=== PATIENT | female | born 1985 | race Caucasian/White ===

== ENCOUNTER 2023-04-26 21:59 | Outpatient (REF) | payer OTHER, SELFPAY ==
[2023-05-02 09:08] LABS: Age Gdln ACOG Testing Note (.); HPV Aptima Negative (Negative); IGP, Aptima HPV, rfx 16/18,45 Note (.)
== END 2023-04-26 22:00 | disposition home or self-care (01) ==
LOC: LAB 21:59
PROVIDERS: PCP Family Medicine; Visit Provider Obstetrics & Gynecology
DX: Z01.419 Encounter for gynecological examination (general) (routine) without abnormal findings (principal)
CPT/HCPCS: 87624; G0145

== ENCOUNTER 2024-05-22 18:56 | Outpatient (REF) | payer OTHER, SELFPAY | END 2024-05-22 18:57 | disposition home or self-care (01) | LOC: LAB 18:56 | PROVIDERS: PCP Family Medicine; Visit Provider Obstetrics & Gynecology | DX: Z01.419 Encounter for gynecological examination (general) (routine) without abnormal findings (principal) | CPT/HCPCS: 87624; 88175 ==

== ENCOUNTER 2024-07-24 13:13 | Outpatient (OUT) | payer OTHER, SELFPAY ==
--- NOTE | 2024-07-24 13:15 | MM_ITS ---
Patient Name: GENNY FLORENTINO MR#: [id number] : 1985 Exam Date: 07/24/2024 Ordering Doctor: DR Oliver Noyola . RADIOLOGY REPORT PROCEDURE: MM TOMOSYNTHESIS SCREENING BI COMPARISON: MG MAMM DX 3D RT CAD, 08/17/2022. MG MAMM SCREEN 3D YOANNA CAD, 04/27/2022. INDICATIONS: Screening Calculator Name NCI Breast Cancer Risk Assessment Tool 5 Year Breast Cancer Risk 0.60% Lifetime Breast Cancer Risk 11.10% Personal Breast Cancer No Personal Ovarian Cancer No Treatments None Family Cancers None LOCATION: [facility] BREAST COMPOSITION: The breasts are extremely dense, which lowers the sensitivity of mammography. FINDINGS: DIAGNOSTIC CATEGORY 2--BENIGN FINDING. NO CHANGE FROM COMPARISON. Scattered benign-appearing nodules are present. Scattered benign-appearing calcifications are present. Scattered benign-appearing lymph nodes are present. RIGHT BREAST: No significant suspicious finding. LEFT BREAST: No significant suspicious finding. RECOMMENDATIONS: ROUTINE MAMMOGRAM AND CLINICAL EVALUATION IN 12 MONTHS. PLEASE NOTE: A NORMAL MAMMOGRAM DOES NOT EXCLUDE THE POSSIBILITY OF BREAST CANCER. A CLINICALLY SUSPICIOUS PALPABLE LUMP SHOULD BE BIOPSIED. Dictated by: Joe Lynn MD on 07/24/2024 at 15:35 Approved by: Joe Lynn MD on 07/24/2024 at 15:36
--- OUTSIDE RECORDS SUMMARY | 2024-07-24 13:35 | XMS_ITS | CCD ---
Author Organization [facility] Care Team Providers Care Architect In Training Name Role Phone SABINO SILVA Primary Care Physician [phone] MOJGAN, DR SABINO Harmon Primary Care Unavailable DENNYS ., DR HERNÁNDEZ Consulting Unavailable DENNYS ., DR HERNÁNDEZ Admitting Unavailable DENNYS ., DR HERNÁNDEZ Attending Unavailable ZIEBER, DR MATTHEW Sapp Consulting Unavailable TIMMONS ., DR GONZALEZ Attending Unavailable TIMMONS ., DR GONZALEZ Consulting Unavailable TIMMONS ., DR GONZALEZ Admitting Unavailable FURLONG, DR SABINO Harmon Primary Care Unavailable ORLANDO LAI Consulting Unavailable TIMMONS ., DR GONZALEZ Attending Unavailable TIMMONS ., DR GONZALEZ Consulting Unavailable FURLONG, DR SABINO Harmon Primary Care Unavailable TIMMONS ., DR GONZALEZ Admitting Unavailable TANVI ODONNELL Consulting Unavailable MICHAEL AIKEN Consulting Unavailable FURLONG, DR SABINO Harmon Primary Care Unavailable DENNYS ., DR HERNÁNDEZ Consulting Unavailable DENNYS ., DR HERNÁNDEZ Admitting Unavailable DENNYS ., DR HERNÁNDEZ Attending Unavailable DENNYS ., DR HERNÁNDEZ Attending Unavailable KEMAH, DR IRMA Koch Consulting Unavailable FURLONG, DR SABINO Harmon Primary Care Unavailable DENNYS ., DR HERNÁNDEZ Admitting Unavailable DENNYS ., DR HERNÁNDEZ Consulting Unavailable Krishan TIMMONS Attending Unavailable TIMMONS, Krishan Sapp Attending Unavailable TIMMONS, Krishan Sapp Attending Unavailable TIMMONS, Krishan Sapp Attending Unavailable TIMMONS, Krishan R Attending Unavailable TIMMONS, Krishan R Attending Unavailable TIMMONS, Krishan Sapp Attending Unavailable TIMMONS, Krishan Sapp Attending Unavailable Furlong Sabino STALLWORTH Primary Care Provider SABINO SILVA Attending Unavailable SABINO SILVA Referring Unavailable FURLOMAZIN, SABINO Harmon Primary Care Unavailable MOJGAN, SABINO Harmon Referring Unavailable FURLOSABINO RETANA Primary Care Unavailable DENNYS, EDGAR Attending Unavailable Sabino Silva MD Primary Care Provider [phone] Allergies Allergy Classification Reported Allergen(s) Allergy Type Date of Onset Reaction(s) Facility (7 sources) Cat Dander; Translations: [CAT DANDER] Propensity to adverse reactions to drug 2 [employer] Work Phone: (3 sources) Cat Hair Extract Propensity to adverse reactions 2 [facility] Medications Current Medications Medication Drug Class(es) Dates Sig (Normalized) Sig (Original) busPIRone hydrochloride 5 mg oral tablet (3 sources) busPIRone (Buspa r) 5 MG tablet busPIRone HCl Active clobetasol propionate 0.5 mg/ml topical cream (3 sources) Corticosteroid clobetasol (Temovate) 0.05 % cream 1 application every 12 (twelve) hours Active levothyroxine sodium 0.088 mg oral tablet (13 sources) l-Thyroxine Start: 01-03-2023 End: 09-07-2023 take 1 tablet by mouth once daily levothyroxine (SYNTHROID, LEVOTHROID) 88 MCG tablet Indications: Hypothyroidism, unspecified TAKE 1 TABLET BY MOUTH EVERY DAY 90 tablet 3 09/07/2023 Active Start: 07-17-2020 take 1 tablet by palmira once daily levothyroxine 75 mcg (0.075 mg) Tab mcg tab(s), Oral, Daily, Refills(s) 0 Start Date: 07/17/20 Status: Ordered valACYclovir 1000 mg oral tablet (10 sources) Herpesvirus Nucleoside Analog DNA Polymerase Inhibitor, Herpes Simplex Virus Nucleoside Analog DNA Polymerase Inhibitor, Herpes Zoster Virus Nucleoside Analog DNA Polymerase Inhibitor Start: 07-12-2024 valACYclovir (VALTR EX) 1000 mg tablet 2 tablets BID x 1 day 4 tablet 4 07/12/2024 Active Start: 07-10-2022 End: 07-12-2024 take 2 tablets by mouth every twelve hours valACYclovir (VALTREX) 1000 mg tablet TAKE 2 TABLETS BY MOUTH EVERY 12 HOURS FOR 1 DAY 4 tablet 4 07/17/2023 07/12/2024 Discontinued (Reorder) take 2 tablets by mo [facility] every twelve hours valACYclovir (Valtrex) 1 g tablet TAKE 2 TABLETS BY MOUTH EVERY 12 HOURS FOR 1 DAY Active Completed/Discontinued Medications Medication Drug Class(es) Dates Sig (Normalized) Sig (Original) ciprofloxacin 500 mg oral tablet (1 source) Quinolone Antimicrobial Start: 07-18-2022 take 1 tablet by mouth once daily Cipro 500 mg Tab 500 mg = 1 tab(s), Oral, Daily, Take 1 tablet the day before the procedure and 1 tablet after the procedure, # 2 tab(s), Refills(s) 0, Pharmacy: [facility]/pharmacy #[id number], 162, cm, 07/18/22 13:55:00 EST, Height/Length Dosing, 66, kg, 07/18/22 13:55:00 EST, W... Start Date: 07/18/22 Status: Ordered Problems Active Problems Problem Classification Problem Date Documented Date Episodic/Chronic Genitourinary symptoms and ill-defined conditions (14 sources) Stress incontinence (female) (male); Translations: [Genuine stress incontinence] Onset: 09-11-2022 Chronic Immunizations and screening for infectious disease (4 sources) Encounter for screening for human papillomavirus (HPV); Translations: [Requires diphtheria, tetanus and pertussis vaccination] Onset: 04-21-2022 08-23-2023 Episodic Nonmalignant breast conditions (4 sources) Solitary cyst of right breast; Translations: [SOLITARY CYST OF RIGHT BREAST] Onset: 08-17-2022 Episodic Other nutritional; endocrine; and metabolic disorders (1 source) Overweight; Translations: [Overweight] 08-23-2023 Episodic Other nutritional; endocrine; and metabolic disorders (1 source) Overweight; Translations: [Overweight] Onset: 08-23-2023 Episodic Other screening for suspected conditions (not mental disorders or infectious disease) (10 sources) Encounter for screening mammogram for malignant neoplasm of breast; Translations: [Encounter for screening for malignant neoplasm of cervix] Onset: 04-20-2022 Episodic Thyroid disorders (14 sources) Hypothyroidism; Translations: [Hypothyroidism, unspecified] Onset: 03-28-2016 07-17-2020 Chronic Unclassified (1 source) Annual Exam Onset: 08-23-2023 Past or Other Problems Problem Classification Problem Date Documented Da te Episodic/Chronic Mood disorders (3 sources) Mood disorders Onset: 08-23-2023 08-23-2023 Other female genital disorders (6 sources) Fallopian tube disorder; Translations: [Noninflammatory disorder of ovary, fallopian tube and broad ligament, unspecified] Onset: 08-23-2023 07-17-2020 Episodic Results Test Name Value Interpretation Reference Range Facility IGP,APTIMA HPV,AGE GDLNon AGE GDLN ACOG TESTING Note . [facility] Comment on above: TESTS RESULT FLAG UN ITS REF RANGE LAB Clinician Provided Cytology Information Source.............Cervix;Endocervix No. of containers..01 ThinPrep Vial Age Algo ACOG Elba... FLAG LEGEND: L-Low Normal,H-High Normal,LL-Alert Low,HH-Alert High <-Panic Low,>-Panic High,A-Abnormal,AA-Critical Abnormal Performed at: 01 = [address] [place] [address] Georgia Franklin MD, HPV APTIMA Negative Negative [facility] e Comment on above: This nucleic acid am plification test detects fourteen high- risk HPV types (16,18,31,33,35,39,45,51,52,56,58,59,66,68) without differentiation. Performed at: =[facility] [address] [id number] Implant Coordinator: Georgia Franklin MD, Phone: [phone] Performed at: [place] [address] [facility] [place] [id number] Implant Coordinator: Georgia Franklin MD, Phone: [phone] IGP, HARMAN HPV, RFX 16/18,45 Note . [facility] Comment on above: TESTS RESULT FLAG UN ITS REF RANGE LAB DIAGNOSIS: 02 NEGATIVE FOR INTRAEPITHELIAL LESION OR MALIGNANCY. THIS SPECIMEN WAS RESCREENED PART OF OUR CORPORATE SAFETY DIRECTOR PROGRAM. Specimen adequacy: 02 Satisfactory for evaluation. Endocervical and/or squamous metaplastic cells (endocervical component) are present. Performed by: Naresh Ceballos, Parts Room Associate (ASC) QC reviewed by: Naresh Whatley, Parts Room Associate (ASC) . 02 Note: Note 02 The Pap smear is a screening test designed to aid in the detection of premalignant and malignant conditions of the uterine cervix. It is not a diagnostic procedure and should not be used as the sole means of detecting cervical cancer. Both false-positive and false-negative reports do occur. Test Methodology: Note 02 This liquid based ThinPrep(R) pap test was screened with the use of an image guided system. HPV Genotype Reflex Note 02 Criteria not met, HPV Genotype not performed. FLAG LEGEND: L-Low Normal,H-High Normal,LL-Alert Low,HH-Alert High <-Panic Low,>-Panic High,A-Abnormal,AA-Critical Abnormal Performed at: 02 [facility] [place] [address] [facility] [place] [address] Georgia Franklin MD, BRUSH-SPATULA CERVIX ENDOCERVIX [facility] COMPREHENSIVE METABOLIC PANE Adriano 08-23-2023 Albumin [Mass/Vol] 4.3 g/dL Normal 3.2-5.3 [facility] Comment on above: Performed By: #### C PRINCE, 61032-5, THYR #### [facility] ([id number]) [address], [address] [place] [address] ALP [Catalytic activity/Vol] 48 U/L Normal 39-130 [facility] Comment on above: Performed By: #### Supriya MORRISON, 53140-2, THYR #### [facility] ([id number]) [address], [address] [place] [address] ALT [Catalytic activity/Vol] 12 U/L Normal 0-31 [facility] Comment on above: Performed By: #### Supriya MORRISON, 65238-7, THYR #### [facility] ([id number]) [address], [address] [place] [address] Anion gap [Moles/Vol] 8 mmol/L Normal 5-15 [facility] Comment on above: Performed By: #### Supriya MORRISON, 40508-7, THYR #### [facility] ([id number]) [address], [address] [place] [address] AST [Catalytic activity/Vol] 14 U/L Normal 0-41 [facility] Comment on above: Performed By: #### Supriya MORRISON, 14134-3, THYR #### [facility] ([id number]) [address], [address] [place] [address] Bilirubin [Mass/Vol] 0.5 mg/dL Normal 0.3-1.2 [facility] Comment on above: Performed By: #### Supriya MORRISON, 21294-5, THYR #### [facility] ([id number]) [address], [address] [place] [address] Calcium [Mass/Vol] 9.1 mg/dL Normal 8.5-10.5 [facility] Comment on above: Performed By: #### C PRINCE, 53412-1, THYR #### [facility] ([id number]) [address], [address] [place] [address] Chloride [Moles/Vol] 104 mmol/L Normal 98-109 [facility] Comment on above: Performed By: #### C PRINCE, 74376-0, THYR #### [facility] ([id number]) [address], [address] [place] [address] CO2 [Moles/Vol] 25 mmol/L Normal 22-32 [facility] Comment on above: Performed By: #### Supriya MORRISON, 32720-3, THYR #### [facility] ([id number]) [address], [address] [place] [address] Creatinine [Mass/Vol] 0.95 mg/dL Normal 0.40-1.00 [facility] Comment on above: Result Comment: METH OD TRACEABLE TO IDMS STANDARD Performed By: #### Supriya MORRISON, 39136-6, THYR #### [facility] ([id number]) [address], [address] [place] [address] GFR/1.73 sq M.predicted among non-blacks MDRD (S/P/Bld) [Vol rate/Area] 78 mL/min/{1.73_m2} Normal >59 [facility] Comment on above: Result Comment: Reported eGFR is based on the CKD-EPI 2020 equation that does not use a race coefficient. Performed By: #### Supriya MORRISON, 11739-9, THYR #### [facility] ([id number]) [address], [address] [place] [address] Glucose [Mass/Vol] 87 mg/dL Normal 65-99 [facility] Comment on above: Performed By: #### C PRINCE, 62998-7, THYR #### [facility] ([id number]) [address], [address] [place] [address] Potassium [Moles/Vol] 4.0 mmol/L Normal 3.5-5.0 [facility] Comment on above: Performed By: #### Supriya MORRISON, 44520-9, THYR #### [facility] ([id number]) [address], [address] [place] [address] Protein [Mass/Vol] 7.6 g/dL Normal 6.0-8.0 [facility] Comment on above: Performed By: #### Supriya MORRISON, 60035-7, THYR #### [facility] ([id number]) [address], [address] [place] [address] Sodium [Moles/Vol] 137 mmol/L Normal 134-146 [facility] Comment on above: Performed By: #### Supriya MORRISON, 27553-4, THYR #### [facility] ([id number]) [address], [address] [place] [address] Urea nitrogen [Mass/Vol] 16 mg/dL Normal 5-23 [facility] Comment on above: Performed By: #### Supriya MORRISON, 88967-5, THYR #### [facility] ([id number]) [address], [address] [place] [address] Comprehensive metabolic pane adriano 08-23-2023 Albumin [Mass/Vol] 4.3 g/dL 3.2 - 5.3 g/dL Pr [facility] ALP [Catalytic activity/Vol] 48 U/L 39 - 130 U/L [facility] ALT No additional P-5'-P [Catalytic activity/Vol] 12 U/L 0 - 31 U/L [facility] Anion gap [Moles/Vol] 8 mmol/L 5 - 15 mmol/L [facility] AST [Catalytic activity/Vol] 14 U/L 0 - 41 U/L [facility] Bilirubin [Mass/Vol] 0.5 mg/dL 0.3 - 1.2 mg/dL [facility] Calcium [Mass/Vol] 9.1 mg/dL 8.5 - 10. 5 mg/dL [facility] Chloride [Moles/Vol] 104 mmol/L 98 - 109 mmol/L [facility] CO2 [Moles/Vol] 25 mmol/L 22 - 32 mmol/L [facility] Creatinine [Mass/Vol] 0.95 mg/dL 0.40 - 1.00 mg/dL [facility] Comment on above: METHOD TRACEABLE TO [facility] STANDARD eGFR (CKD-EPI)non-race dependent 78 - PINF [facility] Comment on above: Reported eGFR is based on the CKD-EPI 2020 equation that does not use a race coefficient. Glucose [Mass/Vol] 87 mg/dL 65 - 99 mg/dL [facility] Potassium [Moles/Vol] 4.0 mmol/L 3.5 - 5.0 mmol/L [facility] Protein [Mass/Vol] 7.6 g/dL 6.0 - 8.0 g/dL [facility] Sodium [Moles/Vol] 137 mmol/L 134 - 146 mmol/L [facility] Urea nitrogen [Mass/Vol] 16 mg/dL 5 - 23 mg/dL [facility] Lipid 1996 panelon 4 Cholesterol [Mass/Vol] 182 mg/dL 150 - 200 mg/dL [facility] Cholesterol in HDL [Mass/Vol] 59 mg/dL 39 - PINF mg/dL [facility] Comment on above: HDL <40 mg/dL - High Risk HDL > or = 40mg/dL- Desirable HDL >60 mg/dL - Negative Risk Cholesterol in LDL [Mass/Vol] 115 mg/dL NINF - 130 mg/dL [facility] Comment on above: LDL <100 mg/dL - Desirable LDL >160 mg/dL - High Risk Cholesterol in VLDL [Mass/Vol] 8 mg/dL 0 - 30 mg/dL [facility] Cholesterol.total/C holesterol in HDL [Mass ratio] 3.1 {ratio} 1.0 - 5.0 [facility] Triglyceride [Mass/Vol] 38 mg/dL 27 - 150 mg/dL [facility] Cholesterol [Mass/Vol] 182 mg/dL Normal 150-200 [facility] Comment on above: Performed By: #### Supriya MORRISON, 16146-5, THYR #### [facility] ([id number]) [address], [address] [place] [address] Cholesterol in HDL [Mass/Vol] 59 mg/dL Normal >39 [facility] Comment on above: Result Comment: HDL <40 mg/dL - High Risk HDL > or = 40mg/dL- Desirable HDL >60 mg/dL - Negative Risk Performed By: #### Supriya MORRISON, 19887-3, THYR #### [facility] ([id number]) [address], [address] [place] [address] Cholesterol in LDL [Mass/Vol] 115 mg/dL Normal <130 [facility] Comment on above: Result Comment: LDL <100 mg/dL - Desirable LDL >160 mg/dL - High Risk Performed By: #### Supriya MORRISON, 26423-4, THYR #### [facility] ([id number]) [address], [address] [place] [address] Cholesterol in VLDL [Mass/Vol] 8 mg/dL Normal 0-30 [facility] Comment on above: Performed By: #### C PRINCE, 05682-5, THYR #### [facility] ([id number]) [address], [address] [place] [address] CHOLESTEROL:HDL 3.1 Normal 1.0-5.0 [facility] Comment on above: Performed By: #### Supriya MORRISON, 42213-0, THYR #### [facility] ([id number]) [address], [address] [place] [address] Triglyceride [Mass/Vol] 38 mg/dL Normal 27-150 [facility] Comment on above: Performed By: #### Supriya MORRISON, 89614-2, THYR #### [facility] ([id number]) [address], [address] [place] [address] No Panel Informationon 08-23 [facility] THYROID PROFILEon 08-23-2023 Free T4 [Mass/Vol] 1.12 ng/dL Normal 0.61-1.60 [facility] Comment on above: Performed By: #### Supriya MORRISON, 30523-4, THYR #### [facility] ([id number]) [address], [address] [place] [address] TSH 2.18 uIU/mL Normal 0.49-4.67 [facility] Comment on above: Performed By: #### Supriya MORRISON, 85662-0, THYR #### [facility] ([id number]) [address], [address] [place] [address] Thyroid profile includes TSH FT4on 08-23-2023 Free T4 [Mass/Vol] 1.12 ng/dL 0.61 - 1. 60 ng/dL [facility] TSH Qn 2.18 m[IU]/L [facility] Cytology Cervical or vaginal smear or scraping studyon 04-26-2023 [facility] Ambulatory Visit Summaryon 0 01-02-2023 Ambulatory Visit Summary GENNY FLORENTINO :1985 Visit Date:01/02/2023 Ambulatory Visit Instructions Your Diagnosis Stress incontinence Tests Performed Urnls Dip Stick Auto w/o Microscopy POC 35119 Your Care Team Attending Physician - Krishan TIMMONS MD Primary Care Physician - SABINO SILVA DO This Is Your Medications List levothyroxine (levothyroxine 75 mcg (0.075 mg) Tab) Procedures Performed Urinary incontinence/sling operation (09/22/2022), Cystoscopy (08/05/2022), CS - section (02/21/2014), Tonsillectomy. Discharge Vitals Heart Rate (Peripheral) 80 Respiratory Rate 16 Blood Pressure 120/70 Height 162 cm Height 64 in Weight 67 kg Weight 147.4 lb BMI 25.53 What to do next You Need to Schedule the Following Appointments Follow Up with SAEED SWANSON, FAROOQ Estes When: Where: [facility] [address] , [place] [address]- Medications What How Much When Instructions Unchanged levothyroxine (levothyroxine 75 mcg (0.075 mg) Tab) Every day Test Results Urnls Dip Stick Auto w/o Microscopy POC 18490 (01/02/2023) Bilirubin Urine Dipstick - Negative Blood Urine Dipstick - Negative Glucose Urine Dipstick - Negative Ketones Urine Dipstick - Negative Leukocytes Urine Dipstick - Trace Nitrite Urine Dipstick - Negative Protein Urine Dipstick - Negative Specific Kamas Urine Dipstick - 1.015 Urine Appearance Urine Dipstick - Clear Urine Color Urine Dipstick - Yellow Urobilinogen Urine Dipstick - Normal 0.2-1 EU/dl pH Urine Dipstick - 6.5 Allergies No Known Allergies Problems Ongoing - Any problem that you are currently receiving treatment for. Fallopian tube disorder Hypothyroidism Stress incontinence Education Materials Kegel Exercises Kegel exercises can help strengthen your pelvic floor muscles. The pelvic floor is a group of muscles that support your rectum, small intestine, and bladder. In females, pelvic floor muscles also help support the uterus. These muscles help you control the flow of urine and stool (feces). Kegel exercises are painless and simple. They do not require any equipment. Your provider may suggest Kegel exercises to: ? Improve bladder and bowel control. ? Improve sexual response. ? Improve weak pelvic floor muscles after surgery to remove the uterus (hysterectomy) or after , in females. ? Improve weak pelvic floor muscles after prostate gland removal or surgery, in males. Kegel exercises involve squeezing your pelvic floor muscles. These are the same muscles you squeeze when you try to stop the flow of urine or keep from passing gas. The exercises can be done while sitting, standing, or lying down, but it is best to vary your position. Ask your health care provider which exercises are safe for you. Do exercises exactly as told by your health care provider and adjust them as directed. Do not begin these exercises until told by your health care provider. Exercises How to do Kegel exercises: 1. Squeeze your pelvic floor muscles tight. You should feel a tight lift in your rectal area. If you are a female, you should also feel a tightness in your vaginal area. Keep your stomach, buttocks, and legs relaxed. 2. Hold the muscles tight for up to 10 seconds. 3. Breathe normally. 4. Relax your muscles for up to 10 seconds. 5. Repeat as told by your health care provider. Repeat this exercise daily as told by your health care provider. Continue to do this exercise for at least 4?6 weeks, or for as long as told by your health care provider. You may be referred to a physical therapist who can help you learn more about how to do Kegel exercises. Depending on your condition, your health care provider may recommend: ? Varying how long you squeeze your muscles. ? Doing several sets of exercises every day. ? Doing exercises for several weeks. ? Making Kegel exercises a part of your regular exercise routine. This information is not intended to replace advice given to you by your health care provider. Make sure you discuss any questions you have with your health care provider. Document Revised: 11/04/2021 Document Reviewed: 11/04/2021 [employer] Patient Education ? 2022 [employer]. Kevyn [facility] Patient Educationon 01-03-20 23 Patient Education Obstetrics and Gynecology Kegel Exercises Kegel exercises can help strengthen your pelvic floor muscles. The pelvic floor is a group of muscles that support your rectum, small intestine, and bladder. In females, pelvic floor muscles also help support the uterus. These muscles help you control the flow of urine and stool (feces). Kegel exercises are painless and simple. They do not require any equipment. Your provider may suggest Kegel exercises to: ? Improve bladder and bowel control. ? Improve sexual response. ? Improve weak pelvic floor muscles after surgery to remove the uterus (hysterectomy) or after , in females. ? Improve weak pelvic floor muscles after prostate gland removal or surgery, in males. Kegel exercises involve squeezing your pelvic floor muscles. These are the same muscles you squeeze when you try to stop the flow of urine or keep from passing gas. The exercises can be done while sitting, standing, or lying down, but it is best to vary your position. Ask your health care provider which exercises are safe for you. Do exercises exactly as told by your health care provider and adjust them as directed. Do not begin these exercises until told by your health care provider. Exercises How to do Kegel exercises: 1. Squeeze your pelvic floor muscles tight. You should feel a tight lift in your rectal area. If you are a female, you should also feel a tightness in your vaginal area. Keep your stomach, buttocks, and legs relaxed. 2. Hold the muscles tight for up to 10 seconds. 3. Breathe normally. 4. Relax your muscles for up to 10 seconds. 5. Repeat as told by your health care provider. Repeat this exercise daily as told by your health care provider. Continue to do this exercise for at least 4?6 weeks, or for as long as told by your health care provider. You may be referred to a physical therapist who can help you learn more about how to do Kegel exercises. Depending on your condition, your health care provider may recommend: ? Varying how long you squeeze your muscles. ? Doing several sets of exercises every day. ? Doing exercises for several weeks. ? Making Kegel exercises a part of your regular exercise routine. This information is not intended to replace advice given to you by your health care provider. Make sure you discuss any questions you have with your health care provider. Document Revised: 11/04/2021 Document Reviewed: 11/04/2021 Retro[employer]iciency Patient Education ? 2022 [employer]. [facility] Patient Educationon 10-08-19 23 Patient Education Urology Urinary Incontinence Urinary incontinence refers to a condition in which a person is unable to control where and when to pass urine. A person with this condition will urinate when he or she does not mean to (involuntarily). What are the causes? This condition may be caused by: ? Medicines. ? Infections. ? Constipation. ? Overactive bladder muscles. ? Weak bladder muscles. ? Weak pelvic floor muscles. These muscles provide support for the bladder, intestine, and, in women, the uterus. ? Enlarged prostate in men. The prostate is a gland near the bladder. When it gets too big, it can pinch the urethra. With the urethra blocked, the bladder can weaken and lose the ability to empty properly. ? Surgery. ? Emotional factors, such as anxiety, stress, or post-traumatic stress disorder (PTSD). ? Pelvic organ prolapse. This happens in women when organs shift out of place and into the vagina. This shift can prevent the bladder and urethra from working properly. What increases the risk? The following factors may make you more likely to develop this condition: ? Older age. ? Obesity and physical inactivity. ? and childbirth. ? Menopause. ? Diseases that affect the nerves or spinal cord (neurological diseases). ? Long-term (chronic) coughing. This can increase pressure on the bladder and pelvic floor muscles. What are the signs or symptoms? Symptoms may vary depending on the type of urinary incontinence you have. They include: ? A sudden urge to urinate, but passing urine involuntarily before you can get to a bathroom (urge incontinence). ? Suddenly passing urine with any activity that forces urine to pass, such as coughing, laughing, exercise, or sneezing (stress incontinence). ? Needing to urinate often, but urinating only a small amount, or constantly dribbling urine (overflow incontinence). ? Urinating because you cannot get to the bathroom in time due to a physical disability, such as arthritis or injury, or communication and thinking problems, such as Alzheimer disease (functional incontinence). How is this diagnosed? This condition may be diagnosed based on: ? Your medical history. ? A physical exam. ? Tests, such as: ? Urine tests. ? X-rays of your kidney and bladder. ? Ultrasound. ? CT scan. ? Cystoscopy. In this procedure, a health care provider inserts a tube with a light and camera (cystoscope) through the urethra and into the bladder in order to check for problems. ? Urodynamic testing. These tests assess how well the bladder, urethra, and sphincter can store and release urine. There are different types of urodynamic tests, and they vary depending on what the test is measuring. To help diagnose your condition, your health care provider may recommend that you keep a log of when you urinate and how much you urinate. How is this treated? Treatment for this condition depends on the type of incontinence that you have and its cause. Treatment may include: ? Lifestyle changes, such as: ? Quitting smoking. ? Maintaining a healthy weight. ? Staying active. Try to get 150 minutes of moderate-intensity exercise every week. Ask your health care provider which activities are safe for you. ? Eating a healthy diet. ? Avoid high-fat foods, like fried foods. ? Avoid refined carbohydrates like white bread and white rice. ? Limit how much alcohol and caffeine you drink. ? Increase your fiber intake. Foods such as fresh fruits, vegetables, beans, and whole grains are healthy sources of fiber. ? Pelvic floor muscle exercises. ? Bladder training, such as lengthening the amount of time between bathroom breaks, or using the bathroom at regular intervals. ? Using techniques to suppress bladder urges. This can include distraction techniques or controlled breathing exercises. ? Medicines to relax the bladder muscles and prevent bladder spasms. ? Medicines to help slow or prevent the growth of a man's prostate. ? Botox injections. These can help relax the bladder muscles. ? Using pulses of electricity to help change bladder reflexes (electrical nerve stimulation). ? For women, using a medical surgery nurse to prevent urine leaks. This is a small, tampon-like, disposable device that is inserted into the urethra. ? Injecting collagen or carbon beads (bulking agents) into the urinary sphincter. These can help thicken tissue and close the bladder opening. ? Surgery. Follow these instructions at home: Lifestyle ? Limit alcohol and caffeine. These can fill your bladder quickly and irritate it. ? Keep yourself clean to help prevent odors and skin damage. Ask your doctor about special skin creams and cleansers that can protect the skin from urine. ? Consider wearing pads or adult diapers. Make sure to change them regularly, and always change them right after experiencing incontinence. General instructions ? Take [id number] and prescription medicines only as (more content not included)... Normal [facility] Urology Office/Clinic Noteon 10-07-2022 Urology Office/Clinic Note Chief Complaint S/P TVT Sling HPI Staff S/P TVT sling done 09/22/22 for Tx of Stress Incontinence. Post Op Keflex 500mg BID x7days- Pt finished Post Op packing removed in office on 09/23/22. PVR today is 23ml Denies any leaking since procedure. Did have some lower back pain the first day or 2 post op, has since then subsided. Denies any concerns at this time, overall happy with procedure. History of Present Illness Tests reviewed: Reviewed UA. I have reviewed the previous health record information and history for this patient from Dr. Timmons. I have reviewed and verified the staff HPI to be accurate for this encounter. There have been no associated fever, chills, flank pain, or blood in the urine. Denies any urinary infections since last encounter. Review of Systems PHQ Score Initial Depression Screen Score: 0 ROS - Provider Constitutional: denies weight loss, denies hot flashes. Eyes: denies eye problems. Gastrointestinal: denies nausea, denies vomiting. Cardiovascular: denies chest pain or angina. Integumentary: no dryness Musculoskeletal: denies musculoskeletal symptoms. ENMT: denies otolaryngeal symptoms. Respiratory: no shortness of breath. Heme/Lymph: denies easy bleeding tendency, denies easy bruising tendency. Psychiatric: no confusion, no anxiety. Genitourinary: denies vaginal discharge, denies incontinence, denies dysuria, denies hematuria, denies urinary frequency, denies amenorrhea, denies menorrhagia, denies abnormal bleeding, denies pelvic pain, denies genital sores, and denies decreased libido. Physical Exam Vitals & Measurements HT: 64 in HT: 162 cm WT: 66 kg WT: 145.2 lb BMI: 25.15 General Appearance: alert , no acute distress, well nourished, well developed female. Genitourinary: bladder nonpalpable, no flank pain. Assessment/Plan 1. Stress incontinence (N39.3: Stress incontinence (female) (male)) S/p Cysto & pelvic exam 08/05/22. S/p TVT sling 09/22/22. Post-op packing removed in office on 09/23/22. PVR 23 mL. Denies any leaking since procedure. Experienced some lower back pain 1-2 days post op, has since resolved. Denies any concerns at this time, overall happy with procedure. Advised patient to give herself more time after urination to fully empty. Shares she has been getting up more frequently during the night, but has increased water intake. UA today TRACE-INTACT blood and small DEMI. Patient has been taking walks but has been avoiding heavy lifting. Still wearing pads, but mainly for precaution. No sexual intercourse for 4 weeks from surgery date. Patient to monitor for hematuria or distinct pain. Follow up in 2-3 months w/ UA & PVR. All questions/concerns were discussed. Pt. to call the office if she encounters any issues prior. Pt. acknowledges understanding. Follow-up With When Contact Information SAEED SWANSON, Krishan Sapp, URL [id number] [id number]- Additional Instructions: 2-3 months w/ UA & PVR Patient Education Urinary Incontinence I, Emily Espino, personally scribed for Dr. Timmons on 10/07/2022 11:43:06. . Documentation recorded by the scribe, Emily Espino, accurately reflects the services(s) I performed and decisions made by me. Authenticated by Dr. Timmons on 10/07/2022 11:47:14. Problem List/Past Medical History Ongoing Fallopian tube disorder Hypothyroidism Stress incontinence Historical No qualifying data Procedure/Surgical History Urinary incontinence/sling operation (09/22/2022), Cystoscopy (08/05/2022), CS - section (02/21/2014), Tonsillectomy. Medications levothyroxine 75 mcg (0.075 mg) Tab, Oral, Daily Allergies No Known Allergies Social History Alcohol - Denies Alcohol Use, 07/17/2020 Tobacco - Denies Tobacco Use, 07/17/2020 Never (less than 100 in lifetime) Tobacco Use:. Never Smokeless Tobacco Use:., 10/07/2022 Family History Congenital heart disease: Grandparent. Depression: Mother. Hypertension: Sister. Hypothyroid: Mother. Migraine: Sister. Primary malignant neoplasm of brain: Grandparent. Immunizations Vaccine Date Status SARS-CoV-2 (COVID-19) mRNA-1273 vaccine 04/07/2021 Recorded SARS-CoV-2 (COVID-19) mRNA-1273 vaccine 03/10/2021 Recorded diphtheria/pertussis, acel/tetanus adult 06/20/2012 Recorded Lab Results Ambulatory Point of Care Results Bilirubin Urine Dipstick: Negative (10/07/22 11:06:00) Blood Urine Dipstick: Trace-intact (10/07/22 11:06:00) Glucose Urine Dipstick: Negative (10/07/22 11:06:00) Ketones Urine Dipstick: Negative (10/07/22 11:06:00) Leukocytes Urine Dipstick: 1+ Small (10/07/22 11:06:00) Nitrite Urine Dipstick: Negative (10/07/22 11:06:00) Protein Urine Dipstick: Negative (10/07/22 11:06:00) Specific Kamas Urine Dipstick: 1.010 (10/07/22 11:06:00) Urine Appearance Urine Dipstick: Clear (10/07/22 11:06:00) Urine Color Urine Dipstick: Light yellow (10/07/22 11:06: (more content not included)... [facility] Comment on above: Result Comment: Elec tronically Signed By: Krishan TIMMONS MD\.br\Date and Time Signed: 10/07/22 11:47 EDT\.br\Electronically Co-Signed By: Emily Espino\.br\Date and Time Co-Signed: 10/07/22 11:44 EDT Lab Reportson 10-04-2022 Lab Reports [id number]. 00CD:127 [facility] Nurse Consultation Noteon Nurse Consultation Note Reason for Visit Post Op Packing Removal Assessment/Plan 1. Stress incontinence (N39.3: Stress incontinence (female) (male)) Post Op Packing removed today in our office. Pt tolerated well. Pt has follow up with Dr Timmons 10/07/22 [facility] OARRS Reporton 09-23-2022 OARRS Report [id number]. 00CD:127 Normal [facility] Operative Reporton Operative Report [id number] .00CD:127 Normal [facility] PREG HCG QUALon 09-22-2022 , QUAL Negative Normal NEGATIVE [facility] Comment on above: Performed By: #### P REG #### [facility] [address] [place] [address] Dr. Eulalio Corona Lab Reportson 09-19-2022 Lab Reports [id number] .[id number]:127 Normal [facility] CBC AUTO DIFFon 09-07-2022 BASO # 0.0 103/ul Normal 0.0-0.1 [facility] Comment on above: Performed By: #### C BC #### [facility] [address] [place] [address] Dr. Eulalio Corona Basophils/100 WBC (Bld) 0.8 % Normal 0.2-2.0 [facility] Comment on above: Performed By: #### C BC #### [facility] [address] [address] [address] Eulalio Corona EO # 0.3 103/ul Normal 0.0-0.7 [facility] Comment on above: Performed By: #### C BC #### [facility] [address] [place] [address] Dr. Eulalio Corona Eosinophils/100 WBC (Bld) 5.2 % Normal 0.9-7.0 [facility] Comment on above: Performed By: #### C BC #### [facility] [address] [place] [address] Dr. Eulalio Corona Erythrocyte distribution width (RBC) [Ratio] 12.9 % Normal 11.0-15.0 [facility] Comment on above: Performed By: #### C BC #### [facility] [address] [place] [address] Dr. Eulalio Corona Hematocrit (Bld) [Volume fraction] 40.5 % Normal 36.0-48.0 [facility] Comment on above: Performed By: #### C BC #### [facility] [address] [place] [address] Dr. Eulalio Corona Hemoglobin (Bld) [Mass/Vol] 13.3 g/dL Normal 12.0-16.0 [facility] Comment on above: Performed By: #### C BC #### [facility] [address] [place] [address] Dr. Eulalio Corona IG # 0.02 10e3/ul Normal 0.00-0.03 [facility] Comment on above: Performed By: #### C BC #### [facility] [address] [place] [address] Dr. Eulalio Corona IG % 0.4 % Normal 0.0-0.5 [facility] Comment on above: Performed By: #### C BC #### [facility] [address] [place] [address] Dr. Eulalio Corona LYMPH # 1.4 103/ul Normal 1.2-3.8 [facility] Comment on above: Performed By: #### C BC #### [facility] [address] [place] [address] Dr. Eulalio Corona Lymphocytes/100 WBC (Bld) 27.4 % Normal 20.5-60.0 [facility] Comment on above: Performed By: #### C BC #### [facility] [address] [place] [address] Dr. Eulalio Corona MANUAL DIFF REQ NO Normal [facility] Comment on above: Performed By: #### C BC #### [facility] [address] [place] [address] Dr. Eulalio Corona MCH (RBC) [Entitic mass] 27.7 pg Normal 26.7-34.0 [facility] Comment on above: Performed By: #### C BC #### [facility] [address] [place] [address] Dr. Eulalio Corona MCHC (RBC) [Mass/Vol] 32.8 g/dL Normal 29.9-35.2 [facility] Comment on above: Performed By: #### C BC #### [facility] [address] [address] [address] Eulalio Corona MCV (RBC) [Entitic vol] 84.4 fL Normal 81.0-99.0 [facility] Comment on above: Performed By: #### C BC #### [facility] [address] [address] [address] Eulalio Corona MONO # 0.5 103/ul Normal 0.3-0.8 [facility] Comment on above: Performed By: #### C BC #### [facility] [address] [address] [address] Eulalio Corona Monocytes/100 WBC (Bld) 9.7 % Normal 1.7-12.0 [facility] Comment on above: Performed By: #### C BC #### [facility] [address] [place] [address] Dr. Eulalio Corona NEUT # 2.9 103/ul Normal 1.4-6.5 [facility] Comment on above: Performed By: #### C BC #### [facility] [address] [place] [address] Dr. Eulalio Corona Neutrophils/100 WBC (Bld) 56.5 % Normal 43.0-75.0 [facility] Comment on above: Performed By: #### C BC #### [facility] [address] [place] [address] Dr. Eulalio Corona Platelet mean volume (Bld) [Entitic vol] 10.7 fL Normal 9.5-13.5 [facility] Comment on above: Performed By: #### C BC #### [facility] [address] [place] [address] Dr. Eulalio Corona PLT 218 103/ul Normal 150-450 [facility] Comment on above: Performed By: #### C BC #### [facility] [address] [place] [address] Dr. Elualio Corona RBC 4.80 106/ul Normal 4.20-5.40 [facility] Comment on above: Performed By: #### C BC #### [facility] [address] [place] [address] Dr. Eulalio Corona WBC 5.2 103/ul Normal 4.0-11.0 [facility] Comment on above: Performed By: #### C BC #### [facility] [address] [address] [address] Eulalio Corona PROF CHEM 8 (BAS METB)on Anion gap [Moles/Vol] 8.6 mmol/L Normal [facility] Comment on above: Performed By: #### B MP #### [facility] [address] [place] [address] Dr. Eulalio Corona Calcium [Mass/Vol] 9.0 mg/dL Normal 8.5-10.1 [facility] Comment on above: Performed By: #### B MP #### [facility] [address] [place] [address] Dr. Eulalio Corona Chloride [Moles/Vol] 106 mmol/L Normal 98-107 [facility] Comment on above: Performed By: #### B MP #### [facility] [address] [place] [address] Dr. Eulalio Corona CO2 [Moles/Vol] 29.6 mmol/L Normal 21.0-32.0 [facility] Comment on above: Performed By: #### B MP #### [facility] [address] [place] [address] Dr. Eulalio Corona Creatinine [Mass/Vol] 0.88 mg/dL Normal 0.55-1.02 [facility] Comment on above: Performed By: #### B MP #### [facility] [address] [place] [address] Dr. Eulalio Corona EGFR-AF BRAZILIAN >60 Normal >=60 [facility] Comment on above: Performed By: #### B MP #### [facility] [address] [place] [address] Dr. Eulalio Corona EGFR-NON AF BRAZILIAN >60 Normal >=60 [facility] Comment on above: Performed By: #### B MP #### [facility] [address] [place] [address] Dr. Eulalio Corona Glucose [Mass/Vol] 60 mg/dL Critically low 74-106 [facility] Comment on above: Performed By: #### B MP #### [facility] [address] [place] [address] Dr. Eulalio Corona Potassium [Moles/Vol] 4.2 mmol/L Normal 3.5-5.1 [facility] Comment on above: Performed By: #### B MP #### [facility] [address] [place] [address] Dr. Eulalio Corona Sodium [Moles/Vol] 140 mmol/L Normal 136-145 [facility] Comment on above: Performed By: #### B MP #### [facility] [address] [place] [address] Dr. Eulalio Corona Urea nitrogen [Mass/Vol] 12.0 mg/dL Normal 7.0-18.0 [facility] Comment on above: Performed By: #### B MP #### [facility] [address] [place] [address] Dr. Eulalio Corona Urea nitrogen/Creatinine [Mass ratio] 13.6 mg/mg Normal [facility] Comment on above: Performed By: #### B MP #### [facility] [address] [place] [address] Dr. Eulalio Corona PROTIMEon 09-07-2022 INR Coag (PPP) [Relative time] 1.10 {INR} Normal [facility] Comment on above: Performed By: #### P TT, PT #### [facility] [address] [place] [address] Dr. Eulalio Corona INR GUIDELINES SEE BELOW Normal [facility] Comment on above: Result Comment: ROS RED INR: 2.0 - 3.0 CONDITIONS NOT LISTED BELOW 2.5 - 3.5 FOR PROSTHETIC HEART VALVE REPLACEMENT 2.5 - 3.5 RECURRENT THROMBOSIS Performed By: #### P TT, PT #### [facility] [address] [place] [address] Dr. Eulalio Corona PT Coag (PPP) [Time] 11.6 s Normal 9.0-11.6 [facility] Comment on above: Performed By: #### P TT, PT #### [facility] [address] [address] [address] Eulalio Corona PTTon 09-07-2022 aPTT Coag (Bld) [Time] 27.2 s Normal 22.3-36.2 [facility] Comment on above: Performed By: #### P TT, PT #### [facility] [address] [place] [address] Dr. Eulalio Corona UA (CLEAN/CATCH) CHEMICAL PATHOLOGIST/MICRO I F IND.on 09-07-2022 Bilirubin Ql (U) Negative Normal NEGATIVE [facility] Comment on above: Performed By: #### U ACSIND #### [facility] [address] [place] [address] Dr. Eulalio Corona Clarity (U) CLEAR Normal CLEAR [facility] Comment on above: Performed By: #### U ACSIND #### [facility] [address] [place] [address] Dr. Eulalio Corona Color (U) YELLOW Normal YELLOW [facility] Comment on above: Performed By: #### U ACSIND #### [facility] [address] [place] [address] Dr. Eulalio Corona Glucose Ql (U) Negative Normal NEGATIVE [facility] Comment on above: Performed By: #### U ACSIND #### [facility] [address] [place] [address] Dr. Eulalio Corona Hemoglobin Ql (U) Negative Normal NEGATIVE [facility] Comment on above: Performed By: #### U ACSIND #### [facility] [address] [place] [address] Dr. Eulalio Corona Ketones Ql (U) Negative Normal NEGATIVE [facility] Comment on above: Performed By: #### U ACSIND #### [facility] [address] [place] [address] Dr. Eulalio Corona LEUKOCYTES Negative Normal NEGATIVE [facility] Comment on above: Performed By: #### U ACSIND #### [facility] [address] [place] [address] Dr. Eulalio Corona Nitrite Ql (U) Negative Normal NEGATIVE [facility] Comment on above: Performed By: #### U ACSIND #### [facility] [address] [address] [address] Eulalio Corona pH (U) 6.0 [pH] Normal 5-9 [facility] Comment on above: Performed By: #### U ACSIND #### [facility] [address] [address] [address] Eulalio Corona SPEC GRAVITY 1.025 Normal 1.005-<=1.025 [facility] Comment on above: Performed By: #### U ACSIND #### [facility] [address] [address] [address] Eulalio Corona UA PROTEIN Negative Normal NEGATIVE/ TRACE [facility] Comment on above: Performed By: #### U ACSIND #### [facility] [address] [place] [address] Dr. Eulalio Corona UR MICRO IND NOT INDICATED Normal [facility] Comment on above: Performed By: #### U ACSIND #### [facility] [address] [place] [address] Dr. Eulalio Corona Urobilinogen Qn (U) 0.2 {Westley'U}/dL Normal 0.2 - 1. 0 [facility] Comment on above: Performed By: #### U ACSIND #### [facility] [address] [place] [address] Dr. Eulalio Corona Consent for Procedure/Surger yon 08-24-2022 Consent for Procedure/Surgery [id number] .[id number]:127 Normal [facility] MG MAMM DX 3D RT CADon 08-17 MG MAMM DX 3D RT CAD Patient: GENNY FLORENTINO Exam Date: 08/17/2022 : 1985 Gender:F Ordering : DR EDGAR NOYOLA . Admission #: [id number] Family : Order #: [id number] CLICK HERE TO VIEW EXAM RADIOLOGY REPORT PROCEDURE: MAMMOGRAM DIAGNOSTIC 3D RIGHT CAD, 08/17/2022, 13:46 ULTRASOUND BREAST RIGHT LIMITED, 08/17/2022, 14:23 COMPARISON: MG MAMM SCREEN 3D YOANNA CAD, 04/27/2022. INDICATIONS: Cyst of right breast Calculator Name NCI Breast Cancer Risk Assessment Tool 5 Year Breast Cancer Risk 0.50% Lifetime Breast Cancer Risk 11.20% Personal Breast Cancer No Personal Ovarian Cancer No Treatments None Family Cancers None LOCATION: [facility] BREAST COMPOSITION: Extremely dense, which lowers the sensitivity of mammography. FINDINGS: DIAGNOSTIC CATEGORY 2--BENIGN FINDING. NO CHANGE FROM COMPARISON. Right breast is stable in size and overall fibroglandular configuration with extremely dense fibroglandular tissue. No new area architectural distortion mass or suspicious calcifications in the upper outer quadrant corresponding to the triangle marker. Very dense tissue on ultrasound no focal mass. Further evaluation should be based on clinical and physical exam RECOMMENDATIONS: CLINICAL EVALUATION. PLEASE NOTE: A NORMAL MAMMOGRAM DOES NOT EXCLUDE THE POSSIBILITY OF BREAST CANCER. A CLINICALLY SUSPICIOUS PALPABLE LUMP SHOULD BE BIOPSIED. Dictated by: Irma Lynn MD on 08/17/2022 at 14:39 Approved by: Irma Lynn MD on 08/17/2022 at 14:41 Normal [facility] US BREAST RIGHT LIMITEDon US BREAST RIGHT LIMITED Patient: GENNY FLORENTINO Exam Date: 08/17/2022 : 1985 Gender:F Ordering : DR EDGAR NOYOLA . Admission #: [id number] Family : Order #: [id number] CLICK HERE TO VIEW EXAM RADIOLOGY REPORT PROCEDURE: MAMMOGRAM DIAGNOSTIC 3D RIGHT CAD, 08/17/2022, 13:46 ULTRASOUND BREAST RIGHT LIMITED, 08/17/2022, 14:23 COMPARISON: MG MAMM SCREEN 3D YOANNA CAD, 04/27/2022. INDICATIONS: Cyst of right breast Calculator Name NCI Breast Cancer Risk Assessment Tool 5 Year Breast Cancer Risk 0.50% Lifetime Breast Cancer Risk 11.20% Personal Breast Cancer No Personal Ovarian Cancer No Treatments None Family Cancers None LOCATION: [facility] BREAST COMPOSITION: Extremely dense, which lowers the sensitivity of mammography. FINDINGS: DIAGNOSTIC CATEGORY 2--BENIGN FINDING. NO CHANGE FROM COMPARISON. Right breast is stable in size and overall fibroglandular configuration with extremely dense fibroglandular tissue. No new area architectural distortion mass or suspicious calcifications in the upper outer quadrant corresponding to the triangle marker. Very dense tissue on ultrasound no focal mass. Further evaluation should be based on clinical and physical exam RECOMMENDATIONS: CLINICAL EVALUATION. PLEASE NOTE: A NORMAL MAMMOGRAM DOES NOT EXCLUDE THE POSSIBILITY OF BREAST CANCER. A CLINICALLY SUSPICIOUS PALPABLE LUMP SHOULD BE BIOPSIED. Dictated by: Irma Lynn MD on 08/17/2022 at 14:39 Approved by: Irma Lynn MD on 08/17/2022 at 14:41 Normal [facility] Operative Reporton Operative Report [id number] .[id number]:127 Normal [facility] Consent for Procedure/Surger yon 07-19-2022 Consent for Procedure/Surgery [id number]:127 Normal [facility] Ambulatory Visit Summaryon 0 07-18-2022 Ambulatory Visit Summary GENNY FLORENTINO :1985 Visit Date:07/18/2022 Ambulatory Visit Instructions Your Diagnosis Stress incontinence Tests Performed Urnls Dip Stick Auto w/o Microscopy POC 11666 Your Care Team Attending Physician - Krishan TIMMONS MD Primary Care Physician - SABINO SILVA DO This Is Your Medications List Contact prescribing physician if questions or concerns levothyroxine (levothyroxine 75 mcg (0.075 mg) Tab) Procedures Performed CS - section (02/21/2014), Tonsillectomy. Discharge Vitals Heart Rate (Peripheral) 83 Respiratory Rate 16 Blood Pressure 125/80 Height 162 cm Height 64 in Weight 66 kg Weight 145.2 lb BMI 25.15 What to do next You Need to Schedule the Following Appointments Follow Up with SAEED SWANSON, Krishan Sapp, FAROO[facility] When: Comments: schedule cysto and sling procedure Where: [facility] [address] [place] [address]- [phone] Medications What How Much When Instructions Unchanged levothyroxine (levothyroxine 75 mcg (0.075 mg) Tab) Every day Contact prescribing physician if questions or concerns Test Results Urnls Dip Stick Auto w/o Microscopy POC 83848 (07/18/2022) Bilirubin Urine Dipstick - Negative Blood Urine Dipstick - Negative Glucose Urine Dipstick - Negative Ketones Urine Dipstick - Negative Leukocytes Urine Dipstick - Negative Nitrite Urine Dipstick - Negative Protein Urine Dipstick - Negative Specific Kamas Urine Dipstick - 1.015 Urine Appearance Urine Dipstick - Clear Urine Color Urine Dipstick - Yellow Urobilinogen Urine Dipstick - Normal 0.2-1 EU/dl pH Urine Dipstick - 5.5 Allergies No Known Allergies Problems Ongoing - Any problem that you are currently receiving treatment for. Fallopian tube disorder Hypothyroidism Stress incontinence Education Materials Overactive Bladder, Adult Overactive bladder refers to a condition in which a person has a sudden need to pass urine. The person may leak urine if he or she cannot get to the bathroom fast enough (urinary incontinence). A person with this condition may also wake up several times in the night to go to the bathroom. Overactive bladder is associated with poor nerve signals between your bladder and your brain. Your bladder may get the signal to empty before it is full. You may also have very sensitive muscles that make your bladder squeeze too soon. These symptoms might interfere with daily work or social activities. What are the causes? This condition may be associated with or caused by: ? Urinary tract infection. ? Infection of nearby tissues, such as the prostate. ? Prostate enlargement. ? Surgery on the uterus or urethra. ? Bladder stones, inflammation, or tumors. ? Drinking too much caffeine or alcohol. ? Certain medicines, especially medicines that get rid of extra fluid in the body (diuretics). ? Muscle or nerve weakness, especially from: ? A spinal cord injury. ? Stroke. ? Multiple sclerosis. ? Parkinson's disease. ? Diabetes. ? Constipation. What increases the risk? You may be at greater risk for overactive bladder if you: ? Are an older adult. ? Smoke. ? Are going through menopause. ? Have prostate problems. ? Have a neurological disease, such as stroke, dementia, Parkinson's disease, or multiple sclerosis (MS). ? Eat or drink things that irritate the bladder. These include alcohol, spicy food, and caffeine. ? Are overweight or obese. What are the signs or symptoms? Symptoms of this condition include: ? Sudden, strong urge to urinate. ? Leaking urine. ? Urinating 8 or more times a day. ? Waking up to urinate 2 or more times a night. How is this diagnosed? Your health care provider may suspect overactive bladder based on your symptoms. He or she will diagnose this condition by: ? A physical exam and medical history. ? Blood or urine tests. You might need bladder or urine tests to help determine what is causing your overactive bladder. You might also need to see a health care provider who specializes in urinary tract problems (urologist). How is this treated? Treatment for overactive bladder depends on the cause of your condition and whether it is mild or severe. You can also make lifestyle changes at home. Options include: ? Bladder training. This may include: ? Learning to control the urge to urinate by following a schedule that directs you to urinate at regular intervals (timed voiding). ? Doing Kegel exercises to strengthen your pelvic floor muscles, which support your bladder. Toning these muscles can help you control urination, even if your bladder muscles are overactive. ? Special devices. This may include: ? Biofeedback, which uses sensors to help you become aware of your body's signals. ? Electrical stimulation, which uses electrodes placed inside th (more content not included)... Normal [facility] Patient Educationon 07-18-19 Patient Education Obstetrics and Gynecology Overactive Bladder, Adult Overactive bladder refers to a condition in which a person has a sudden need to pass urine. The person may leak urine if he or she cannot get to the bathroom fast enough (urinary incontinence). A person with this condition may also wake up several times in the night to go to the bathroom. Overactive bladder is associated with poor nerve signals between your bladder and your brain. Your bladder may get the signal to empty before it is full. You may also have very sensitive muscles that make your bladder squeeze too soon. These symptoms might interfere with daily work or social activities. What are the causes? This condition may be associated with or caused by: ? Urinary tract infection. ? Infection of nearby tissues, such as the prostate. ? Prostate enlargement. ? Surgery on the uterus or urethra. ? Bladder stones, inflammation, or tumors. ? Drinking too much caffeine or alcohol. ? Certain medicines, especially medicines that get rid of extra fluid in the body (diuretics). ? Muscle or nerve weakness, especially from: ? A spinal cord injury. ? Stroke. ? Multiple sclerosis. ? Parkinson's disease. ? Diabetes. ? Constipation. What increases the risk? You may be at greater risk for overactive bladder if you: ? Are an older adult. ? Smoke. ? Are going through menopause. ? Have prostate problems. ? Have a neurological disease, such as stroke, dementia, Parkinson's disease, or multiple sclerosis (MS). ? Eat or drink things that irritate the bladder. These include alcohol, spicy food, and caffeine. ? Are overweight or obese. What are the signs or symptoms? Symptoms of this condition include: ? Sudden, strong urge to urinate. ? Leaking urine. ? Urinating 8 or more times a day. ? Waking up to urinate 2 or more times a night. How is this diagnosed? Your health care provider may suspect overactive bladder based on your symptoms. He or she will diagnose this condition by: ? A physical exam and medical history. ? Blood or urine tests. You might need bladder or urine tests to help determine what is causing your overactive bladder. You might also need to see a health care provider who specializes in urinary tract problems (urologist). How is this treated? Treatment for overactive bladder depends on the cause of your condition and whether it is mild or severe. You can also make lifestyle changes at home. Options include: ? Bladder training. This may include: ? Learning to control the urge to urinate by following a schedule that directs you to urinate at regular intervals (timed voiding). ? Doing Kegel exercises to strengthen your pelvic floor muscles, which support your bladder. Toning these muscles can help you control urination, even if your bladder muscles are overactive. ? Special devices. This may include: ? Biofeedback, which uses sensors to help you become aware of your body's signals. ? Electrical stimulation, which uses electrodes placed inside the body (implanted) or outside the body. These electrodes send gentle pulses of electricity to strengthen the nerves or muscles that control the bladder. ? Women may use a plastic device that fits into the vagina and supports the bladder (pessary). ? Medicines. ? Antibiotics to treat bladder infection. ? Antispasmodics to stop the bladder from releasing urine at the wrong time. ? Tricyclic antidepressants to relax bladder muscles. ? Injections of botulinum toxin type A directly into the bladder tissue to relax bladder muscles. ? Lifestyle changes. This may include: ? Weight loss. Talk to your health care provider about weight loss methods that would work best for you. ? Diet changes. This may include reducing how much alcohol and caffeine you consume, or drinking fluids at different times of the day. ? Not smoking. Do not use any products that contain nicotine or tobacco, such as cigarettes and e-cigarettes. If you need help quitting, ask your health care provider. ? Surgery. ? A device may be implanted to help manage the nerve signals that control urination. ? An electrode may be implanted to stimulate electrical signals in the bladder. ? A procedure may be done to change the shape of the bladder. This is done only in very severe cases. Follow these instructions at home: Lifestyle ? Make any diet or lifestyle changes that are recommended by your health care provider. These may include: ? Drinking less fluid or drinking fluids at different times of the day. ? Cutting down on caffeine or alcohol. ? Doing Kegel exercises. ? Losing weight if needed. ? Eating a healthy and balanced diet to prevent constipation. This may include: ? Eating foods that are high in fiber, such as fresh fruits and vegetables, whole grains, and beans. ? Limiting foods that are high in fat and processed sugars, such as fried and sweet foods. General instructions ? Take ove (more content not included)... Normal [facility] Urology Office/Clinic Noteon 07-18-2022 Urology Office/Clinic Note Chief Complaint Discuss Bladder Sling HPI Staff Pt is here today to discuss possible bladder sling procedure for stress incontinence. She was last seen in our office 07/20/20 due to stress incontinence, bladder sling was recommended at that time. Wears a panty liner due to leaking, changes on average 2x/day. Leaking occurs with physical activity. No improvement over the last 2 yrs. Denies pain/burning and blood in urine. History of Present Illness Tests reviewed: reviewed UA I have reviewed the previous health record information and history for this patient from Dr. Timmons. I have reviewed and verified the staff HPI to be accurate for this encounter. There have been no associated fever, chills, flank pain, or blood in the urine. Denies any urinary infections since last encounter. Review of Systems PHQ Score Initial Depression Screen Score: 0 ROS - Provider Constitutional: denies weight loss, denies hot flashes. Eyes: denies eye problems. Gastrointestinal: denies nausea, denies vomiting. Cardiovascular: denies chest pain or angina. Integumentary: no dryness Musculoskeletal: denies musculoskeletal symptoms. ENMT: denies otolaryngeal symptoms. Respiratory: no shortness of breath. Heme/Lymph: denies easy bleeding tendency, denies easy bruising tendency. Psychiatric: no confusion, no anxiety. Genitourinary: denies vaginal discharge, denies incontinence, denies dysuria, denies hematuria, denies urinary frequency, denies amenorrhea, denies menorrhagia, denies abnormal bleeding, denies pelvic pain, denies genital sores, and denies decreased libido. Physical Exam Vitals & Measurements HR: 83(Peripheral) RR: 16 BP: 125/80 HT: 64 in HT: 162 cm WT: 66 kg WT: 145.2 lb BMI: 25.15 General Appearance: alert , no acute distress, well nourished, well developed female. Genitourinary: bladder nonpalpable, no flank pain. Assessment/Plan 1. Stress incontinence (N39.3: Stress incontinence (female) (male)) Moderate stress incontinence w/ coughing, sneezing, and exercise. Pt states that she leaks when she is active but the overall leakage has not worsened. Pt would like to proceed with doing a sling procedure. Educated pt the risks of the procedure and the after-care. Pt to get a cysto prior. All questions/concerns were discussed. no utis. no stones. Pt to call the office if she encounters any issues prior. Pt acknowledges understanding. The risks and benefits for cystoscopy have been discussed. The risks include bleeding, infection, and irritation of the bladder and urinary channel, among others. The patient, after being informed of procedural details and after questions have been answered, wishes to proceed. Full informed consent has been obtained. Will order Local anesthesia. Will schedule cysto/pelvic. The procedural risks, benefits, details, and treatment alternatives have been discussed with the patient. These include bleeding, infection, failure of the procedure with continued urinary leakage ? both immediately or in the future, inability to void with need for indwelling catheter or in/out catheter, and injury to blood vessels, nerves, and other internal organs. Also discussed was the possibility of mesh erosion with need for additional procedures, as well as the rare risk of chronic pelvic pain after the procedure. Full informed consent has been obtained. Will order Local anesthesia. Follow-up With When Contact Information SAEED SWANSON, Krishan Sapp, [facility] [address], [place] [address] [phone] Additional Instructions: schedule cysto and sling procedure Patient Education Overactive Bladder, Adult I, Lindsay Ochoa, personally scribed for Dr. Timmons on 07/18/2022 14:51:30. . Documentation recorded by the scribe, Lindsay Ochoa, accurately reflects the services(s) I performed and decisions made by me. Authenticated by Dr. Timmons on 07/18/2022 14:53:35. Problem List/Past Medical History Ongoing Fallopian tube disorder Hypothyroidism Stress incontinence Historical No qualifying data Procedure/Surgical History CS - section (02/21/2014), Tonsillectomy. Medications levothyroxine 75 mcg (0.075 mg) Tab, Oral, Daily Allergies No Known Allergies Social History Alcohol - Denies Alcohol Use, 07/17/2020 Tobacco - Denies Tobacco Use, 07/17/2020 Never (less than 100 in lifetime) Tobacco Use:. Never Smokeless Tobacco Use:., 07/18/2022 Family History Congenital heart disease: Grandparent. Depression: Mother. Hypertension: Sister. Hypothyroid: Mother. Migraine: Sister. Primary malignant neoplasm of brain: Grandparent. Immunizations Vaccine Date Status SARS-CoV-2 (COVID-19) mRNA-1273 vaccine 04/07/2021 Recorded SARS-CoV-2 (COVID-19) mRNA-1273 vaccine 03/10/2021 Recorded diphtheria/pertussis, acel/tetanus adult 06/20/2012 Recorded Lab Results Ambulatory Point of Care Results Bilirubin Urine Dipstick: Negati (more content not included)... Normal [facility] Comment on above: Result Comment: Elec tronically Signed By: Krishan TIMMONS MD\.br\Date and Time Signed: 07/18/22 14:54 EST\.br\Electronically Co-Signed By: Lindsay Ochoa\.br\Date and Time Co-Signed: 07/18/22 14:51 EST MG MAMM SCREEN 3D YOANNA CADon 04-27-2022 MG MAMM SCREEN 3D YOANNA CAD Patient: GENNY FLORENTINOReina Exam Date: 04/27/2022 : 1985 Gender:F Ordering : DR EDGAR NOYOLA . Admission #: [id number] Family : Order #: [id number] CLICK HERE TO VIEW EXAM RADIOLOGY REPORT PROCEDURE: MAMMOGRAM SCREENING 3D BILATERAL CAD COMPARISON: None. INDICATIONS: Screening mammography Calculator Name NCI Breast Cancer Risk Assessment Tool 5 Year Breast Cancer Risk 0.50% Lifetime Breast Cancer Risk 11.20% Personal Breast Cancer No Personal Ovarian Cancer No Treatments None Family Cancers None LOCATION: [facility] BREAST COMPOSITION: Extremely dense, which lowers the sensitivity of mammography. FINDINGS: DIAGNOSTIC CATEGORY 1--NEGATIVE. RIGHT BREAST: No significant suspicious finding. LEFT BREAST: No significant suspicious finding. RECOMMENDATIONS: ROUTINE MAMMOGRAM AND CLINICAL EVALUATION IN 12 MONTHS. PLEASE NOTE: A NORMAL MAMMOGRAM DOES NOT EXCLUDE THE POSSIBILITY OF BREAST CANCER. A CLINICALLY SUSPICIOUS PALPABLE LUMP SHOULD BE BIOPSIED. Dictated by: Matthew Brown M.D. on 04/27/2022 at 15:56 Approved by: Matthew Brown M.D. on 04/27/2022 at 15:58 Normal [facility] PAP ACOG PANEL 2: 30 to 65on 04-27-2022 . . Normal [facility] Comment on above: Result Comment: Perf ormed at: WB Performed By: #### [id number] #### [facility] [address] [address] [address] Eulalio Corona Age Gdln ACOG Testing 30-65 Normal [facility] Comment on above: Performed By: #### [id number] #### [facility] [address] [address] [address] Eulalio Corona DIAGNOSIS: Comment Normal [facility] Comment on above: Result Comment: NEGA TIVE FOR INTRAEPITHELIAL LESION OR MALIGNANCY. Performed at: WB Performed By: #### [id number] #### [facility] [address] [address] [address] Eulalio Corona HPV Aptima Negative Normal Negative [facility] Comment on above: Result Comment: This nucleic acid amplification test detects fourteen high-risk HPV types (16,18,31,33,35,39,45,51,52,56,58,59,66,68) without differentiation. Performed at: =G Performed By: #### 4 [id number] #### [facility] [address] [place] [address] Dr. Eulalio Corona Methodology: Comment Normal [facility] Comment on above: Result Comment: This liquid based ThinPrep(R) pap test was screened with the use of an image guided system. Performed at: WB Performed By: #### 4 [id number] #### [facility] [address] [place] [address] Dr. Eulalio Corona Note: Comment Normal [facility] Comment on above: Result Comment: The Pap smear is a screening test designed to aid in the detection of premalignant and malignant conditions of the uterine cervix. It is not a diagnostic procedure and should not be used as the sole means of detecting cervical cancer. Both false-positive and false-negative reports do occur. . Performed at: WB Performed By: #### 4 [id number] #### [facility] [address] [place] [address] Dr. Eulalio Corona Performed by: Comment Normal [facility] Comment on above: Result Comment: Latosha Henriquez, Parts Room Associate (ASCP) Performed at: WB Performed By: #### 4 [id number] #### [facility] [address] [place] [address] Dr. Eulalio Corona Specimen adequacy: Comment Normal [facility] Comment on above: Result Comment: Sati sfactory for evaluation. No endocervical component is identified. Performed at: WB Performed By: #### 4 [id number] #### [facility] [address] [place] [address] Dr. Eulalio Corona [facility] 01-13-2022 Albumin [Mass/Vol] 4.2 g/dL Normal 3.6-5.1 [facility] Comment on above: Performed By: #### 5 [id number], [id number], 7370 #### [facility] [address], [address] [place] [id number] Open Die Inspector: Anson Gunderson MD Albumin/Globulin [Mass ratio] 1.6 {ratio} Normal 1.0-2.5 [facility] Comment on above: Performed By: #### 5 8984, 87563, 0 #### [facility] of [address], [address] [place] [address] Open Die Inspector: Anson Gunderson MD ALP [Catalytic activity/Vol] 41 U/L Normal 31-125 [facility] Comment on above: Performed By: #### 5 8984, 29153, 7600 #### [facility] of [address], [address] [place] [address] Open Die Inspector: Anson Gunderson MD ALT [Catalytic activity/Vol] 9 U/L Normal 6-29 [facility] Comment on above: Performed By: #### 5 8984, 95612, 0 #### [facility] of [address], [address] [place] [address] Open Die Inspector: Anson Gunderson MD AST [Catalytic activity/Vol] 10 U/L Normal 10-30 [facility] Comment on above: Performed By: #### 5 [id number], , 0 #### [facility] of [address], [address] [place] [address] Open Die Inspector: Anson Gunderson MD Bilirubin [Mass/Vol] 0.5 mg/dL Normal 0.2-1.2 [facility] Comment on above: Performed By: #### 5 8984, 67719, 0 #### [facility] of [address], [address] [place] [address] Open Die Inspector: Anson Gunderson MD BUN/CREATININE RATIO NOT APPLICABLE Normal 6-22 [facility] Comment on above: Performed By: #### 5 [id number], [id number], 0 #### [facility] of [address], [address] [place] [address] Open Die Inspector: Anson Gunderson MD Calcium [Mass/Vol] 9.0 mg/dL Normal 8.6-10.2 [facility] Comment on above: Performed By: #### 5 [id number], [id number], 7600 #### [facility] of [address], [address] [place] [address] Open Die Inspector: Anson Gunderson MD Chloride [Moles/Vol] 104 mmol/L Normal 98-110 [facility] Comment on above: Performed By: #### 5 8984, 35943, 0 #### [facility] of [address], [address] [place] [address] Open Die Inspector: Anson Gunderson MD CO2 [Moles/Vol] 28 mmol/L Normal 20-32 [facility] Comment on above: Performed By: #### 5 [id number], , 0 #### [facility] of [address], [address] [place] [address] Open Die Inspector: Anson Gunderson MD Creatinine [Mass/Vol] 0.93 mg/dL Normal 0.50-1.10 [facility] Comment on above: Performed By: #### 5 8984, , 0 #### [facility] of [address], [address] [place] [address] Open Die Inspector: Anson Gunderson MD eGFR NON-AFR. BRAZILIAN 78 mL/min/1.73m2 Normal > OR = 60 [facility] Comment on above: Performed By: #### 5 8984, , 0 #### [facility] [place] [address] Open Die Inspector: Anson Gunderson MD GFR/1.73 sq M.predicted among blacks MDRD (S/P/Bld) [Vol rate/Area] 90 mL/min/{1.73_m2} Normal > OR = 60 [facility] Comment on above: Performed By: #### 5 [id number], , 0 #### [facility] of [address], [address] [place] [address] Open Die Inspector: Anson Gunderson MD Globulin (S) [Mass/Vol] 2.7 g/dL Normal 1.9-3.7 [facility] Comment on above: Performed By: #### 5 [id number], [id number], 0 #### [facility] of [address], [address] [place] [address] Open Die Inspector: Anson Gunderson MD Glucose [Mass/Vol] 84 mg/dL Normal 65-99 [facility] Comment on above: Result Comment: Fasting reference interval Performed By: #### 5 [id number], [id number], 0 #### [facility] of [address], [address] [place] [address] Open Die Inspector: Anson Gunderson MD Potassium [Moles/Vol] 4.5 mmol/L Normal 3.5-5.3 [facility] Comment on above: Performed By: #### 5 [id number], [id number], 0 #### [facility] of [address], [address] [place] [address] Open Die Inspector: Anson Gunderson MD Protein [Mass/Vol] 6.9 g/dL Normal 6.1-8.1 [facility] Comment on above: Performed By: #### 5 [id number], [id number], 0 #### [facility] [address], [address] [place] [address] Open Die Inspector: Anson Gunderson MD Sodium [Moles/Vol] 139 mmol/L Normal 135-146 [facility] Comment on above: Performed By: #### 5 8984, 12081, 0 #### [facility] [place] [address] Open Die Inspector: Anson Gunderson MD Urea nitrogen [Mass/Vol] 12 mg/dL Normal 7-25 [facility] Comment on above: Performed By: #### 5 8984, 66581, 0 #### [facility] of [place] [address] Open Die Inspector: Anson Gunderson MD LIPID PANEL, STANDARD 07-0 Cholesterol [Mass/Vol] 182 mg/dL Normal <200 [facility] Comment on above: Order Comment: FASTI NG:YES FASTING: YES Performed By: #### 5 8984, 64555, 7600 #### [facility] of [place] [address] Open Die Inspector: Anson Gunderson MD Cholesterol in HDL [Mass/Vol] 65 mg/dL Normal > OR = 50 [facility] Comment on above: Order Comment: FASTI NG:YES FASTING: YES Performed By: #### 5 [id number], 80719, 7600 #### [facility] [address], [address] [place] [address] Open Die Inspector: Anson Gunderson MD Cholesterol in LDL [Mass/Vol] 104 mg/dL High [facility] Comment on above: Order Comment: FASTI NG:YES FASTING: YES Result Comment: Refe rence range: <100 Desirable range <100 mg/dL for primary prevention; <70 mg/dL for patients with CHD or diabetic patients with > or = 2 CHD risk factors. LDL-C is now calculated using the Anjel calculation, which is a validated novel method providing better accuracy than the Friedewald equation in the estimation of LDL-C. Valeriano SS et al. CONSUELO. 2013;310(19): 3373-4777 (http://education.Live Life 360/faq/SKA684) Performed By: #### 5 8984, 48411, 7600 #### [facility] [address], [address] [place] [address] Open Die Inspector: Anson Gunderson MD Cholesterol.total/C holesterol in HDL [Mass ratio] 2.8 {ratio} Normal <5.0 [facility] Comment on above: Order Comment: FASTI NG:YES FASTING: YES Performed By: #### 5 8984, 99634, 7600 #### [facility] [address], [address] [place] [address] Open Die Inspector: Anson Gunderson MD NON HDL CHOLESTEROL 117 mg/dL (calc) Normal <130 [facility] Comment on above: Order Comment: FASTI NG:YES FASTING: YES Result Comment: For patients with diabetes plus 1 major ASCVD risk factor, treating to a non-HDL-C goal of <100 mg/dL (LDL-C of <70 mg/dL) is considered a therapeutic option. Performed By: #### 5 8984, 80041, 7600 #### [facility] [address], [address] [place] [address] Open Die Inspector: Anson Gunderson MD Triglyceride [Mass/Vol] 43 mg/dL Normal <150 [facility] Comment on above: Order Comment: FASTI NG:YES FASTING: YES Performed By: #### 5 8984, 56718, 7600 #### [facility] [address] [place] [address], [address] Open Die Inspector: Anson Gunderson MD TSH+FREE T4on 01-13-2022 Free T4 [Mass/Vol] 1.7 ng/dL Normal 0.8-1.8 [facility] Comment on above: Performed By: #### 5 8984, 58804, 7600 #### [facility] [address], [address] [place], [place] [id number] Open Die Inspector: Anson Gunderson MD TSH Qn 6.36 m[IU]/L High [facility] Comment on above: Result Comment: Refe rence Range > or = 20 Years 0.40-4.50 Ranges First trimester 0.26-2.66 Second trimester 0.55-2.73 Third trimester 0.43-2.91 Performed By: #### 5 8984, 09819, 7600 #### [facility] [address], [address] [place] [address] Open Die Inspector: Anson Gunderson MD Vital Signs Date Time Vital Sign Value Performing Clinician [facility] 05-22-2024 15:14-0500 Body mass index (BMI) [Ratio] 25.23 kg/m2 Edgar Dennys DO Work Phone: [facility] 05-22-2024 15:14-0500 Body weight 66.68 kg Edgar Dennys DO Work Phone: [facility] 05-22-2024 15:14-0500 Diastolic blood pressure 72 mm[Hg] Edgar Dennys DO Work Phone: [facility] 05-22-2024 15:14-0500 Systolic blood pressure 122 mm[Hg] Edgar Dennys DO Work Phone: [facility] 08-23-2023 09:45-0500 Body height 162.6 cm Sabino Silva DO Work Phone: [facility] [employer] [facility] 08-23-2023 09:45-0500 Body mass index (BMI) [Ratio] 25.92 kg/m2 Sabino Furlong DO Work Phone: [facility] [employer] [facility] 08-23-2023 09:45-0500 Body temperature 98.1 [degF] Sabino Pachecolong DO Work Phone: [facility] [employer] [facility] 08-23-2023 09:45-0500 Body weight 68.49 kg Sabino Furlong DO Work Phone: [facility] [employer] [facility] 08-23-2023 09:45-0500 Diastolic blood pressure 68 mm[Hg] Sabino Furlong DO Work Phone: [facility] [employer] [facility] 08-23-2023 09:45-0500 Heart rate 61 /min Sabino Pachecolong DO Work Phone: [facility] [employer] [facility] 08-23-2023 09:45-0500 SaO2% (BldA) [Mass fraction] 96 % Sabino Bergmanlong DO Work Phone: [facility] [employer] [facility] 08-23-2023 09:45-0500 Systolic blood pressure 92 mm[Hg] Sabino Bergmanlong DO Work Phone: [facility] 01-02-2023 13:16-0400 Blood Pressure Location Krishan TIMMONS [facility] 01-02-2023 13:16-0400 Diastolic blood pressure 70 mm[Hg] Krishan TIMMONS [facility] 01-02-2023 13:16-0400 Heart rate 80 /min Krishan TIMMONS [facility] 01-02-2023 13:16-0400 Respiratory rate 16 /min Krishan TIMMONS [facility] 01-02-2023 13:16-0400 Systolic blood pressure 120 mm[Hg] Krishan TIMMONS [facility] Encounters Encounter Date Encounter Type Care Provider Facility Start: 07-12-2024 End: 07-12-2024 Merrill Bermudez CMA [facility] Start: 05-22-2024 End: 05-22-2024 ambulatory EDGAR DENNYS Not Available Start: 05-22-2024 End: 05-22-2024 Bamboo flowsheet Edgar Dennys DO Work Phone: [facility] Start: 05-22-2024 End: 05-31-2024 Bamboo flowsheet Edgar Dennys DO Work Phone: [facility] Start: 05-22-2024 End: 05-31-2024 Clinisync Result Encounter Edgar Dennys DO Work Phone: [facility] Unsolicited Start: 05-22-2024 End: 05-22-2024 Patient encounter procedure Edgar Dennys DO Work Phone: [facility] Start: 05-22-2024 End: 05-22-2024 Periodic preventive med est patient 40-64yrs Edgar Dennys DO Work Phone: [facility] Comment on above: Well woman exam with routine gynecological exam; Breast cancer screening by mammogram Start: 09-07-2023 Orders Only Sabino Faustino [facility] DO Work Phone: [facility] Comment on above: Hypothyroidism, unsp ecified Start: 08-23-2023 End: 08-24-2023 ambulatory [facility] Start: 08-23-2023 Encounter for genera l adult medical examination without abnormal findings [facility] Start: 08-23-2023 End: 08-23-2023 ambulatory [facility] Start: 08-23-2023 Encounter for genera l adult medical examination without abnormal findings [facility] Start: 08-23-2023 End: 08-23-2023 Patient encounter status Sabino Harmon Bloxom DO Work Phone: [facility] Work Phone: Start: 08-23-2023 End: 08-23-2023 Periodic preventive med est patient 18-39 yrs Sabino Silva DO Work Phone: [facility] Comment on above: Well adult exam (Shraddha cotton Dx); Hypothyroidism, unspecified type; Overweight; Need for xbxcrjdonv-aexgfah-iqzncjsig (Tdap) vaccine; Need for vaccination Start: 08-03-2023 Refill Laisha Acuna TECHNICAL TRAINING SPECIALIST-SPECIAL EDUCATION MATH TEACHER Work Phone: [facility] Comment on above: Hypothyroidism, unsp ecified Start: 07-16-2023 Refill Laisha Acuna TECHNICAL TRAINING SPECIALIST-SPECIAL EDUCATION MATH TEACHER Work Phone: [facility] Start: 01-02-2023 End: 01-03-2023 ambulatory Krishan TIMMONS Facility:[facility] Start: 01-02-2023 End: 01-02-2023 Patient encounter procedure Krishan TIMMONS [facility] Start: 10-07-2022 End: 10-08-2022 ambulatory Krishan TIMMONS Facility:[facility] [place] [facility] Start: 10-07-2022 End: 10-07-2022 Patient encounter procedure Krishan TIMMONS [facility] Start: 09-23-2022 End: 09-24-2022 ambulatory Krishan TIMMONS Facility:[facility] Start: 09-23-2022 End: 09-23-2022 Patient encounter procedure Krishan TIMMONS [facility] Start: 09-22-2022 End: 09-23-[address] KRISHAN TIMMONS . Facility:[facility] Start: 09-11-2022 Encounter for preprocedural laboratory examination DR KRISHAN TIMMONS . [facility] Start: 09-07-2022 End: 09-08-[address] KRISHAN TIMMONS . Facility:[facility] Start: 09-07-2022 End: 09-08-2022 Encounter for preprocedural laboratory examination DR KRISHAN TIMMONS . Facility:[facility] Start: 08-17-2022 End: 08-18-[address] EDGAR NOYOLA . Facility:[facility] Start: 08-05-2022 End: 08-06-2022 ambulatory Krishan TIMMONS Facility:CD:[id number] Start: 07-18-2022 End: 07-19-2022 ambulatory Krishan TIMMONS Facility:[facility] Start: 07-13-2022 ambulatory Krishan TIMMONS Facili ty:[facility] Start: 04-27-2022 End: 04-28-[address] SABINO SILVA Facility: Start: 04-20-2022 End: 04-20-[address] SABINO SILVA Facility: Procedures Date Procedure Procedure Detail Performing Clinician Start: 05-22-2024 IGP,APTIMA HPV,AGE GDLN Edgar Noyola DO Work Phone: Start: 05-22-2024 Microscopic observat ion [Identifier] in Cervix by Cyto stain Edgar Noyola DO Work Phone: Start: 08-23-2023 Adult depression scr eening assessment Sabino Silva DO Work Phone: Start: 04-26-2023 Microscopic observat ion [Identifier] in Cervix by Cyto stain Sabino Silva DO Work Phone: Start: 04-26-2023 Cytp cerv/vag auto t hin layer prep mnl screen Edgar Noyola DO Work Phone: Start: 09-22-2022 Urinary incontinence /sling operation Krishan TIMMONS Start: 08-17-2022 Mammography Edgar rodríguez DO Work Phone: Start: 08-05-2022 Cystoscopy Krishan BARRON Start: 02-21-2014 section Dax TIMMONS Tonsillectomy Krishan TIMMONS Plan of Treatment Date Care Activity Detail Author Start: 08-23-2033 DTaP,Tdap and Td Vaccines (3 - Td or Tdap) DTaP,Tdap and Td Vaccines (3 - Td or Tdap) [facility] Start: 04-26-2028 Screening for malignant neoplasm of cervix [facility] Start: 05-22-2027 Screening for malignant neoplasm of cervix Pap Smear [facility] Start: 04-26-2026 Screening for malignant neoplasm of cervix Pap Smear [facility] Start: 08-23-2024 Adult BMI Screening Adult BMI Screen ing [facility] Start: 08-23-2024 Depression Screening Depression Scre ening [facility] Start: 08-23-2024 Tobacco Screening Tobacco Screening [facility] Start: 07-10-2024 COVID-19 Vaccine ( season) COVID-19 Vaccine () [facility] Comment on above: Postponed from 03/10 (Patient Refused) Start: 05-22-2024 End: 07-22-2025 MG Breast - bilateral Screening Bilateral screening mammogram Imaging Routine Breast cancer screening by mammogram Expected: 05/22/2024 (Approximate), Expires: 07/22/2025 [facility] Work Phone: Comment on above: Expected: 05/22/2024 (Approximate), Expires: 07/22/2025 Start: 03-10-2024 COVID-19 Vaccine () COVID-19 Vaccine () [facility] Start: 03-10-2024 Influenza vaccination [facility] Start: 2023 Screening for malignant neoplasm of breast Mammogram [facility] Start: 10-08-2023 Influenza vaccination Influenza Vacc ine [facility] Comment on above: Postponed from 03/10 (Patient Refused) Start: 08-23-2023 End: 08-23-2023 Patient encounter procedure 08/23/2023 10:00 AM EST Office Visit [facility] [address] [place] [address] Sabino Silva DO [address], [place] [address] [facility] Start: 03-10-2023 Influenza vaccination Influenza Vacc ine [facility] Start: 06-20-2022 DTaP,Tdap and Td Vaccines (2 - Td or Tdap) DTaP,Tdap and Td Vaccines (2 - Td or Tdap) [facility] Start: 12-29-2004 Screening for malignant neoplasm of cervix Pap Smear [facility] Start: 12-29-2001 Adult BMI Follow Up Plan Adult BMI Follow Up Plan [facility] Start: 12-29-2001 Adult BMI Screening Adult BMI Screen ing [facility] Start: 1995 Depression Screening Depression Scre ening [facility] Start: 1995 Tobacco Screening Tobacco Screening [facility] THIN PREP TIS PAP AN D HR HPV DNA THIN PREP TIS PAP AND HR HPV DNA Pathology and Cytology Routine Well woman exam with routine gynecological exam Ordered: 05/22/2024 [facility] Comment on above: Ordered: 05/22/2024 Immunizations Immunization Date Immunization Notes Care Provider Fa cility 08-23-2023 diphtheria, tetanus toxoids and acellular pertussis vaccine, unspecified formulation Sabino Silva DO Work Phone: [facility] 08-23-2023 tetanus toxoid, redu eun diphtheria toxoid, and acellular pertussis vaccine, adsorbed Sabino Silva DO Work Phone: [facility] 08-23-2023 Immunization, In Clinic,; Translations: [Drug or medicament (substance)] Sabino Pachecosunitha DO Work Phone: [facility] 04-07-2021 SARS-CoV-2 (COVID-19 ) mRNA-1273 vaccine Krishan TIMMONS [facility] 03-10-2021 SARS-CoV-2 (COVID-19 ) mRNA-1273 vaccine Krishan TIMMONS [facility] 06-20-2012 tetanus toxoid, redu eun diphtheria toxoid, and acellular pertussis vaccine, adsorbed Krishan TIMMONS [facility] Payers Date Payer Category Payer Managed Care O (unspecified) [employer] [id number] 2014 Commercial Managed [facility] [employer] [id number] 2014 Unknown [employer] [id number] 2014-Present [phone] [address] [place] [address] [id number] 1983 Unknown [id number] 2.16.840.1.043119.3.579 .2.593 1983 Unknown [id number] 2.16.840.1.389283.3.579 .2.593 1983 Unknown [id number] 2.16.840.1.111668.3.579 .2.593 1983 Unknown [id number] 2.16.840.1.572994.3.579 .2.593 1983 Unknown [id number] 2.16.840.1.680339.3.579 .2.593 1983 Unknown [id number] 2.16.840.1.028270.3.579 .2.727 1983 Unknown [id number] 2.16.840.1.951508.3.579 .2.727 1983 Unknown [id number] 2.16.840.1.916186.3.579 .2.727 1983 Unknown [id number] 2.16.840.1.131510.3.579 .2.727 1983 Unknown [id number] 2.16.840.1.692566.3.579 .2.727 1983 Unknown [id number] 2.16.840.1.288787.3.579 .2.727 1983 Unknown [id number] 2.16.840.1.280816.3.579 .2.727 1983 Unknown [id number] 2.16.840.1.340192.3.579 .2.727 1983 Unknown [id number] 2.16.840.1.118590.3.579 .2.727 1983 Unknown [id number] 2.16.840.1.686100.3.579 .2.1286 1983 Unknown [id number] 2.16.840.1.937357.3.579 .2.1286 1983 Unknown [id number] 2.16.840.1.935144.3.579 .2.1259 1959 Unknown [id number] Social History Date Type Detail Facility Start: 07-18-2022 End: 08-23-2023 Tobacco smoking status Never smoked tobacco (finding) [facility] Tobacco smoking status Never [facility] Start: 12-19-2018 End: 08-23-2023 Sex Assigned At Female [facility] Tobacco smoking stat [facility] Tobacco smoking consumption unknown [facility] Start: 12-19-2018 End: 08-23-2023 History of Social function [facility] Start: 1985 Sex Assigned At Not on file [facility] Start: 04-14-2023 End: 08-23-2023 Tobacco use and exposure Smokeless tobacco non-user [facility] Start: 08-23-2023 Alcohol intake Ex-drinker (finding) [facility] Has the Paxer, or [employer] threatened to shut off services in your home in past 12Mo No [facility] Are you now , , , , never or living with a partner? [facility] How often to you hav e a drink containing alcohol? Monthly or less [facility] How many standard drinks containing alcohol do you have on a typical day? 3 or 4 [facility] How often do you hav e 6 or more drinks on 1 occasion? Never [facility] Do you feel stress - tense, restless, nervous, or anxious, or unable to sleep at night because your mind is troubled all the time - these days [OSQ] Only a little [facility] Start: 05-22-2024 Alcoholic beverage intake Lifetime non-drinker (finding) [facility] Start: 1985 Sex assigned at Female [facility] Start: 04-03-2024 Gender identity Identifies as female gender (finding) [facility] Start: 04-03-2024 Sexual orientation Heterosexual (finding) [facility] Start: 02-12-2015 Sex Female (finding) [facility] Functional Status Date Assessment Result Facility 01-02-2023 Functional Status N/A [facility] 10-07-2022 Functional Status N/A [facility] Clinical Notes 10-07-2022 to 05-22-2024 Dominga Smith, SOCCER PLAYER - 05/22/2024 2:00 PM Johnie Silva, DO - 08/23/2023 10:00 AM EST Note Date & Type Note Facility 05-22-2024 History of Presen t illness Narrative Reason for Appointment: Patient ID: Judy Florentino is a 38 y.o. female who presents for Gynecologic Exam Patient presents today for Annual Exam. MEDICATIONS Current Outpatient Medications Medication Instructions busPIRone (Buspar) 5 MG tablet busPIRone HCl clobetasol (Temovate) 0.05 % cream 1 application , Every 12 hours levothyroxine (SYNTHROID, LEVOXYL) 88 mcg, Oral, Daily valACYclovir (Valtrex) 1 g tablet TAKE 2 TABLETS BY MOUTH EVERY 12 HOURS FOR 1 DAY ALLERGIES Allergies Allergen Reactions Cat Hair Extract PROBLEMS Active Ambulatory Problems Diagnosis Date Noted No Active Ambulatory Problems Resolved Ambulatory Problems Diagnosis Date Noted No Resolved Ambulatory Problems Past Medical History: Diagnosis Date BMI 25.0-25.9,adult Fallopian tube disorder Hypothyroidism (CMS/HCC) Stress incontinence Well woman exam HISTORY PAST MEDICAL HISTORY SOCIAL HISTORY Past Medical History: Diagnosis Date BMI 25.0-25.9,adult Fallopian tube disorder Hypothyroidism (CMS/HCC) Stress incontinence Well woman exam Social History Tobacco Use Smoking status: Never Smokeless tobacco: Never Substance Use Topics Alcohol use: Never Drug use: Never FAMILY HISTORY Family History Problem Relation Name Age of Onset Mental illness Mother Cancer Maternal Grandmother Heart disease Maternal Grandfather SURGICAL HISTORY Past Surgical History: Procedure Laterality Date SECTION, LOW TRANSVERSE 02/2014 [facility] 04/27/2022 suspicious palpable lump bx INCONTINENCE SURGERY PAP SMEAR 04/27/2022 neg REVIEW OF SYSTEMS Review of Systems: Review of Systems Constitutional: Negative. HENT: Negative. Eyes: Negative. Respiratory: Negative. Cardiovascular: Negative. Gastrointestinal: Negative. Genitourinary: Negative. Musculoskeletal: Negative. Skin: Negative. Neurological: Negative. All other systems reviewed and are negative. Hematological: Negative. Endocrine: Negative. Allergic/Immunologic: Negative. OBJECTIVE Objective: Physical Exam Constitutional: Appearance: Normal appearance. She is well-developed. Genitourinary: Vulva normal. Breasts: Breasts are soft. Right: Normal. Left: Normal. Cardiovascular: Rate and Rhythm: Normal rate and regular rhythm. Pulmonary: Effort: Pulmonary effort is normal. Breath sounds: Normal breath sounds. Abdominal: General: Bowel sounds are normal. There is no distension. Palpations: Abdomen is soft. Tenderness: There is no abdominal tenderness. There is no guarding or rebound. Musculoskeletal: General: No swelling. Normal range of motion. Right lower leg: No edema. Left lower leg: No edema. Neurological: Mental Status: She is alert and oriented to person, place, and time. Skin: General: Skin is warm and dry. Psychiatric: Mood and Affect: Mood normal. Behavior: Behavior normal. Vitals and nursing note reviewed. Exam conducted with a photovoltaic fabrication technician present. Vitals: Estimated body mass index is 25.23 kg/m as calculated from the following: Height as of 04/26/23: 5' 4 . Weight as of this encounter: 147 lb. BP: 122/72 No LMP recorded. ASSESSMENT & PLAN ICD-10-CM 1. Well woman exam with routine gynecological exam Z01.419 THIN PREP TIS PAP AND HR HPV DNA 2. Breast cancer screening by mammogram Z12.31 Bilateral screening mammogram Bilateral screening mammogram Annual: Patient presents today for an annual exam. Patient states she is doing well and has no complaints. Pap was obtained without difficulty and patient given mammogram order to have scheduled/obtained. Orders Placed This Encounter Procedures Bilateral screening mammogram Follow Up: Patient is to return in one year for annual unless needed otherwise. Documented by Dominga Smith LPN on behalf of: Edgar Noyola DO documented in this encounter [facility] 08-23-2023 History of Presen t illness Narrative Subjective Patient ID: Genny Florentino is a 37 y.o. female. Mavis presents today for her annual wellness. She is taking her levothyroxine and not having any side effects. She is exercising 5 days a week and is having trouble losing weight. She is history of hypothyroidism and her dose was increased at her last check a year and a half ago. The following portions of the patient's history were reviewed and updated as appropriate: allergies, current medications, past family history, past medical history, past social history, past surgical history, problem list, and medication reconciliation was completed including current medication and post discharge medication. Review of Systems Constitutional: Positive for unexpected weight change (She is up 2 lb compared to her last visit in 2021). HENT: Negative. Eyes: Negative. Respiratory: Negative. Cardiovascular: Negative. Gastrointestinal: Negative. Endocrine: Negative. Genitourinary: Negative. Musculoskeletal: Negative. Allergic/Immunologic: Negative. Neurological: Negative. Hematological: Negative. Psychiatric/Behavioral: Negative. Objective Physical Exam Vitals reviewed. Constitutional: General: She is not in acute distress. Appearance: She is well-groomed and overweight. HENT: Head: Normocephalic. Right Ear: External ear normal. Left Ear: External ear normal. Mouth/Throat: Lips: [place]. Eyes: General: No scleral icterus. Extraocular Movements: Extraocular movements intact. Conjunctiva/sclera: Conjunctivae normal. Neck: Thyroid: No thyroid mass, thyromegaly or thyroid tenderness. Cardiovascular: Rate and Rhythm: Normal rate and regular rhythm. Pulses: Normal pulses. Heart sounds: Normal heart sounds. No murmur heard. Pulmonary: Effort: Pulmonary effort is normal. No respiratory distress. Breath sounds: Normal breath sounds. No wheezing, rhonchi or rales. Abdominal: General: Bowel sounds are normal. There is no distension. Palpations: Abdomen is soft. There is no mass. Tenderness: There is no abdominal tenderness. Hernia: No hernia is present. Musculoskeletal: Cervical back: Neck supple. Right lower leg: No edema. Left lower leg: No edema. Lymphadenopathy: Cervical: No cervical adenopathy. Skin: General: Skin is warm and dry. Findings: No lesion or rash. Neurological: General: No focal deficit present. Mental Status: She is alert and oriented to person, place, and time. Cranial Nerves: Cranial nerves 2-12 are intact. Gait: Gait is intact. Psychiatric: Attention and Perception: Attention normal. Mood and Affect: Mood and affect normal. Speech: Speech normal. Behavior: Behavior normal. Behavior is cooperative. Thought Content: Thought content normal. Cognition and Memory: Cognition and memory normal. Judgment: Judgment normal. Assessment/Plan Genny was seen today for annual exam. Diagnoses and all orders for this visit: Well adult exam - Comprehensive metabolic panel; Future - Lipid panel; Future Health maintenance discussed. Check CMP and lipids. Hypothyroidism, unspecified type - Thyroid profile includes TSH FT4; Future Check TSH and T4. Overweight Hypothyroidism may be causing her issues with her weight. She is exercising. Discussed diet and portion sizes. Need for yapincbyzj-imspgse-jmpiqfnvr (Tdap) vaccine - diph,pertuss,acel,,tet vac,PF, (ADACEL,TDAP ADOLESN/ADULT,,PF,) 2 Lf-(2.5-5-3-5 mcg)-5Lf/0.5 mL injection; Inject 0.5 mL into the appropriate muscle once for 1 dose. She is in need of a Tdap booster. She is agreeable to getting it today. Need for vaccination - Tdap vaccine greater than or equal to 7yo IM documented in this encounter [facility] 01-02-2023 Hospital Discharg e instructions Patient Education 01/02/2023 08:33:49 Kegel Exercises Kegel Exercises Kegel exercises can help strengthen your pelvic floor muscles. The pelvic floor is a group of muscles that support your rectum, small intestine, and bladder. In females, pelvic floor muscles also help support the uterus. These muscles help you control the flow of urine and stool (feces). Kegel exercises are painless and simple. They do not require any equipment. Your provider may suggest Kegel exercises to: Improve bladder and bowel control. Improve sexual response. Improve weak pelvic floor muscles after surgery to remove the uterus (hysterectomy) or after , in females. Improve weak pelvic floor muscles after prostate gland removal or surgery, in males. Kegel exercises involve squeezing your pelvic floor muscles. These are the same muscles you squeeze when you try to stop the flow of urine or keep from passing gas. The exercises can be done while sitting, standing, or lying down, but it is best to vary your position. Ask your health care provider which exercises are safe for you. Do exercises exactly as told by your health care provider and adjust them as directed. Do not begin these exercises until told by your health care provider. Exercises How to do Kegel exercises: 1.Squeeze your pelvic floor muscles tight. You should feel a tight lift in your rectal area. If you are a female, you should also feel a tightness in your vaginal area. Keep your stomach, buttocks, and legs relaxed. 2.Hold the muscles tight for up to 10 seconds. 3.Breathe normally. 4.Relax your muscles for up to 10 seconds. 5.Repeat as told by your health care provider. Repeat this exercise daily as told by your health care provider. Continue to do this exercise for at least 4 6 weeks, or for as long as told by your health care provider. You may be referred to a physical therapist who can help you learn more about how to do Kegel exercises. Depending on your condition, your health care provider may recommend: Varying how long you squeeze your muscles. Doing several sets of exercises every day. Doing exercises for several weeks. Making Kegel exercises a part of your regular exercise routine. This information is not intended to replace advice given to you by your health care provider. Make sure you discuss any questions you have with your health care provider. Document Revised: 11/04/2021 Document Reviewed: 11/04/2021 Retroficiency Patient Education 2022 [employer]. Follow Up Care 10/07/2022 11:48:17 With:SAEED SWANSON, Krishan Sapp, URL Address: [facility] [address] [place] [address]- When: Unknown [facility] 10-07-2022 Hospital Discharg e instructions Patient Education 10/07/2022 11:42:51 Urinary Incontinence Urinary Incontinence Urinary incontinence refers to a condition in which a person is unable to control where and when to pass urine. A person with this condition will urinate when he or she does not mean to (involuntarily). What are the causes? This condition may be caused by: Medicines. Infections. Constipation. Overactive bladder muscles. Weak bladder muscles. Weak pelvic floor muscles. These muscles provide support for the bladder, intestine, and, in women, the uterus. Enlarged prostate in men. The prostate is a gland near the bladder. When it gets too big, it can pinch the urethra. With the urethra blocked, the bladder can weaken and lose the ability to empty properly. Surgery. Emotional factors, such as anxiety, stress, or post-traumatic stress disorder (PTSD). Pelvic organ prolapse. This happens in women when organs shift out of place and into the vagina. This shift can prevent the bladder and urethra from working properly. What increases the risk? The following factors may make you more likely to develop this condition: Older age. Obesity and physical inactivity. and childbirth. Menopause. Diseases that affect the nerves or spinal cord (neurological diseases). Long-term (chronic) coughing. This can increase pressure on the bladder and pelvic floor muscles. What are the signs or symptoms? Symptoms may vary depending on the type of urinary incontinence you have. They include: A sudden urge to urinate, but passing urine involuntarily before you can get to a bathroom (urge incontinence). Suddenly passing urine with any activity that forces urine to pass, such as coughing, laughing, exercise, or sneezing (stress incontinence). Needing to urinate often, but urinating only a small amount, or constantly dribbling urine (overflow incontinence). Urinating because you cannot get to the bathroom in time due to a physical disability, such as arthritis or injury, or communication and thinking problems, such as Alzheimer disease (functional incontinence). How is this diagnosed? This condition may be diagnosed based on: Your medical history. A physical exam. Tests, such as: ?Urine tests. ?X-rays of your kidney and bladder. ?Ultrasound. ?CT scan. ?Cystoscopy. In this procedure, a health care provider inserts a tube with a light and camera (cystoscope) through the urethra and into the bladder in order to check for problems. ?Urodynamic testing. These tests assess how well the bladder, urethra, and sphincter can store and release urine. There are different types of urodynamic tests, and they vary depending on what the test is measuring. To help diagnose your condition, your health care provider may recommend that you keep a log of when you urinate and how much you urinate. How is this treated? Treatment for this condition depends on the type of incontinence that you have and its cause. Treatment may include: Lifestyle changes, such as: ?Quitting smoking. ?Maintaining a healthy weight. ?Staying active. Try to get 150 minutes of moderate-intensity exercise every week. Ask your health care provider which activities are safe for you. ?Eating a healthy diet. ?Avoid high-fat foods, like fried foods. ?Avoid refined carbohydrates like white bread and white rice. ?Limit how much alcohol and caffeine you drink. ?Increase your fiber intake. Foods such as fresh fruits, vegetables, beans, and whole grains are healthy sources of fiber. Pelvic floor muscle exercises. Bladder training, such as lengthening the amount of time between bathroom breaks, or using the bathroom at regular intervals. Using techniques to suppress bladder urges. This can include distraction techniques or controlled breathing exercises. Medicines to relax the bladder muscles and prevent bladder spasms. Medicines to help slow or prevent the growth of a man's prostate. Botox injections. These can help relax the bladder muscles. Using pulses of electricity to help change bladder reflexes (electrical nerve stimulation). For women, using a medical surgery nurse to prevent urine leaks. This is a small, tampon-like, disposable device that is inserted into the urethra. Injecting collagen or carbon beads (bulking agents) into the urinary sphincter. These can help thicken tissue and close the bladder opening. Surgery. Follow these instructions at home: Lifestyle Limit alcohol and caffeine. These can fill your bladder quickly and irritate it. Keep yourself clean to help prevent odors and skin damage. Ask your doctor about special skin creams and cleansers that can protect the skin from urine. Consider wearing pads or adult diapers. Make sure to change them regularly, and always change them right after experiencing incontinence. General instructions Take knhv-vwr-ishrxwq and prescription medicines only as told by your health care provider. Use the bathroom about every 3 4 hours, even if you do not feel the need to urinate. Try to empty your bladder completely every time. After urinating, wait a minute. Then try to urinate again. Make sure you are in a relaxed position while urinating. If your incontinence is caused by nerve problems, keep a log of the medicines you take and the times you go to the bathroom. Keep all follow-up visits as told by your health care provider. This is important. Contact a health care provider if: You have pain that gets worse. Your incontinence gets worse. Get help right away if: You have a fever or chills. You are unable to urinate. You have redness in your groin area or down your legs. Summary Urinary incontinence refers to a condition in which a person is unable to control where and when to pass urine. This condition may be caused by medicines, infection, weak bladder muscles, weak pelvic floor muscles, enlargement of the prostate (in men), or surgery. The following factors increase your risk for developing this condition: older age, obesity, and childbirth, menopause, neurological diseases, and chronic coughing. There are several types of urinary incontinence. They include urge incontinence, stress incontinence, overflow incontinence, and functional incontinence. This condition is usually treated first with lifestyle and behavioral changes, such as quitting smoking, eating a healthier diet, and doing regular pelvic floor exercises. Other treatment options include medicines, bulking agents, medical devices, electrical nerve stimulation, or surgery. This information is not intended to replace advice given to you by your health care provider. Make sure you discuss any questions you have with your health care provider. Document Released: 08/03/2005 Document Revised: 07/06/2018 Document Reviewed: 10/05/2017 Retroficiency Patient Education 2020 [employer]. Follow Up Care 08/19/2022 09:23:18 With:Krishan TIMMONS MD, URL Address: [address] [place] [phone]- When: Unknown [facility] Evaluation + Plan note Future Appointments Appointment Date:10/07/2022 10:30:00 AM Scheduled Provider:Krishan TIMMONS MD Location:[facility] Appointment Type:URO Office Visit [facility] Evaluation + Plan note Future Appointments Appointment Date:01/02/2023 12:15:00 PM Scheduled Provider:Krishan TIMMONS MD Location:[facility] Appointment Type:URO Office Visit [facility] Evaluation note Diagnosis Hypothyroidism, unspecified [facility] Diagnosis Well adult exam- Primary Routine general medical examination at a health care facility Hypothyroidism, unspecified type Overweight Need for decncbdlyu-acpubya-tacupxphq (Tdap) vaccine Need for prophylactic vaccination with combined yknjjpiglf-tzrkiuo-rkbroccze (DTP) vaccine Need for vaccination Need for prophylactic vaccination and inoculation against unspecified single disease [facility] Hypothy[facility], unspecified [facility] Diagnosis Well woman exam with routine gynecological exam Routine gynecological examination Breast cancer screening by mammogram [facility] N[facility] No data available for this section [facility] Hospital Discharge instructions No data available for this section [facility] InstructionsNot on filedocumented in this encounter [facility] filedocument[facility] No data available for this section [facility] Summary Purpose Family History No Family History Records FoundNo Family History Records FoundNo Family History Records FoundNo Family History Records FoundNo Family History Records FoundNo Family History Records Found Advance Directives No Advanced Directives Records FoundNo Advanced Directives Records FoundNo Advanced Directives Records FoundNo Advanced Directives Records FoundNo Advanced Directives Records FoundNo Advanced Directives Records Found Additional Source Comments INFORMATION SOURCE (unrecogn ized section and content) DATE CREATED AUTHOR 01/13/2022 [facility] DATE CREATED AUTHOR AUTHOR'S ORGANIZ ATION 09/28/2022 [facility] DATE CREATED AUTHOR AUTHOR'S ORGANIZ ATION 01/03/2023 [facility] DATE CREATED AUTHOR AUTHOR'S ORGANIZ ATION 08/25/2023 [facility] DATE CREATED AUTHOR AUTHOR'S ORGANIZ ATION 08/25/2023 [facility] DATE CREATED AUTHOR AUTHOR'S ORGANIZ ATION 05/24/2024 [facility] EPIC Patient Care team informatio n (unrecognized section and content) Architect In Training Relationship Specialty Start Date End Date Sabino Silva DO [address] [place] [address] PCP - General Family Medicine 03/02/17 Architect In Training Relationship Specialty Start Date End Date Sabino Silva DO [address] [place] [address] PCP - General Family Medicine 03/02/17 Architect In Training Relationship Specialty Start Date End Date Sabino Silva DO [address] [place] [address] PCP - General Family Medicine 03/02/17 Architect In Training Relationship Specialty Start Date End Date Sabino Silva DO [address] [place] [address] PCP - General Family Medicine 03/02/17 Architect In Training Relationship Specialty Start Date End Date Sabino Silva MD [address] [place] [address] PCP - General Family Medicine 04/26/23 Architect In Training Relationship Specialty Start Date End Date Sabino Silva MD [address] [place] [address] PCP - General Family Medicine 04/26/23 Architect In Training Relationship Specialty Start Date End Date Sabino Silva MD [address] [place] [address] PCP - General Family Medicine 04/26/23 Reason for Visit (unrecogniz ed section and content) Reason Comments Med Refill Reason Comments Annual Exam Reason Comments Gynecologic Exam Reason Onset Date Comments Med Refill 07/12/2024 FOR RECORDS PERTAINING TO PATIENTS WHO ARE OR HAVE BEEN ENROLLED IN A CHEMICAL DEPENDENCY/SUBSTANCEABUSE PROGRAM, SOME INFORMATION MAY BE OMITTED. This clinical summary was aggregated from multiple sources. Caution should be exercised in using it in the provision of clinical care. This summary normalizes information from multiple sources, and as a consequence, information in this document may materially change the coding, format and clinical context of patient data. In addition, data may be omitted in some cases. CLINICAL DECISIONS SHOULD BE BASED ON THE PRIMARY CLINICAL RECORDS. [facility] [employer] [facility]. provides no warranty or guarantee of the accuracy or completeness of information in this document.
== END 2024-07-24 13:14 | disposition home or self-care (01) ==
LOC: MAMMO 13:13
PROVIDERS: PCP Family Medicine; Visit Provider Obstetrics & Gynecology
DX: Z12.31 Encounter for screening mammogram for malignant neoplasm of breast (principal)
CPT/HCPCS: 77063; 77067